=== PATIENT | female | born 1940 | race African-American/Black ===

== ENCOUNTER 2016-12-07 13:08 | Observation (INO) ==
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
--- NOTE | 2016-12-07 14:04 | Diag Imaging Result Doc PS360 ---
EXAM: CHEST-PORTABLE HISTORY: hx copd TECHNIQUE: Portable AP COMPARISON: 06/14/2015 FINDINGS: The lungs are well expanded. The heart is not enlarged. The vessels are not distended. No pneumonia. No pleural effusions identified. There are long-standing arthritic changes to each shoulder. IMPRESSION: Stable chest Electronically signed by Azam Christiansen 12/07/2016 2:01 PM
[2016-12-07 14:09] LABS: BASO% 0.3 % (0.0-0.8); EOS# 0.16 X1000 (0.0-0.7); EOS% 2.6 % (0.0-10.0); HEMATOCRIT 27.4 % (37.0-47.0); HEMOGLOBIN 8.5 g/dL (12.0-16.0); IMM GRAN# 0.02 X1000 (0.0-0.04); IMM GRAN% 0.3 % (0.0-0.5); LYMPH# 1.59 X1000 (1.2-3.4); LYMPH% 26.3 % (20.5-51.1); MANUAL DIFF NEEDED? YES; MCH 22.7 PG (27-31); MCV 73.1 FL (81-99); MONO# 0.85 X1000 (0.11-0.59); MONO% 14.1 % (1.7-9.3); MPV 10.4 FL (7.4-10.4); NEUT% 56.4 % (42.2-75.2); PLT 180 X1000 (130-400); RBC 3.75 XMIL (4.2-5.4)
[2016-12-07 14:27] LABS: EOS 6 % (1-10); LYMPHS 31 % (21-51); MONO 4 % (1-9)
[2016-12-07 14:29] LABS: AGAP 11; ALBUMIN 3.5 g/dL (3.5-5.0); ALKALINE PHOSPHATASE 75 U/L (32-104); BUN 23 mg/dL (8-22); CALCIUM 9.4 mg/dL (8.8-10.2); CHLORIDE 103 mmol/L (98-107); COSMO 285; GOT 14 U/L (10-30); GPT 8 U/L (10-36); POTASSIUM 4.4 mmol/L (3.5-5.1); SODIUM 141 mmol/L (136-145); TCO2 28 mmol/L (25-35); TOTAL PROTEIN 7.3 g/dL (6.3-8.3)
[2016-12-07] MEDS: ZOSYN 2.25 GM in NS 50 ML IV SCH ×2 (15:00→21:16)
[2016-12-07 15:26] LABS: BILIRUBIN URINE NEGATIVE (NEGATIVE); BLOOD URINE TRACE (NEGATIVE); CLARITY SL. CLOUDY (CLEAR); COLOR YELLOW; GLUCOSE URINE NEGATIVE (NEGATIVE); LEUKOCYTES URINE 2+ (NEGATIVE); NITRITE URINE NEGATIVE (NEGATIVE); PROTEIN URINE NEGATIVE (NEGATIVE); UROBILINOGEN URINE NORMAL
[2016-12-07 15:27] LABS: URINE CULTURE PL NEEDED? YES; URINE EPITHELIAL CELLS <10 /HPF (<10); URINE RBC <10 /HPF (<10); URINE SOURCE CLEAN CATCH; URINE WBC 20-40 /HPF (<10)
[2016-12-07] MEDS ORDERED: ZOFRAN IV PRN (16:44)
[2016-12-07 17:36] LABS: HEMOGLOBIN A1C 5.5 % (4.8-6.0)
[2016-12-07] MEDS: LOVENOX SUBQ SCH (18:01)
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
[2016-12-07] MEDS ORDERED: NS 100 ML ONE (21:13)
[2016-12-07] MEDS ORDERED: NS 50 ML IV SCH (21:15)
[2016-12-07] MEDS: NEURONTIN PO SCH (21:16)
[2016-12-08] MEDS: ZOSYN 2.25 GM in NS 50 ML IV SCH ×4 (02:59→21:16)
--- NOTE | 2016-12-08 03:52 | HISTORY AND PHYSICAL ---
ADDENDUM: Patient seen and examined by myself. Full note dictated and discussed with nurse practitioner. The patient notes that she is feeling fine. She actually ate supper without any difficulty. Denies any chest pain, palpitations. Does note that she has low back pain and sometimes difficulty urinating. PHYSICAL: General: Patient is awake, alert. She is in no distress. Extremities: She does have multiple wounds on the left hip that appear to be in various stages of healing. PLAN: We will admit patient to the hospital. Certainly concerned that she may have a urinary infection given her symptoms. We will treat her for such. We will ask Wound Therapy to assist with decreasing her current wound on her left hip as this has not been cared for properly at home. We will continue treatment for her blood sugar and her blood pressure. cc: Lucien Mcduffie MD
[2016-12-08 06:45] LABS: BASO% 0.2 % (0.0-0.8); EOS# 0.22 X1000 (0.0-0.7); HEMATOCRIT 26.2 % (37.0-47.0); HEMOGLOBIN 7.9 g/dL (12.0-16.0); IMM GRAN# 0.02 X1000 (0.0-0.04); IMM GRAN% 0.4 % (0.0-0.5); LYMPH# 2.07 X1000 (1.2-3.4); LYMPH% 37.9 % (20.5-51.1); MANUAL DIFF NEEDED? YES; MCH 22.2 PG (27-31); MCHC 30.2 g/dL (33-37); MCV 73.6 FL (81-99); MONO# 0.68 X1000 (0.11-0.59); MONO% 12.5 % (1.7-9.3); MPV 11.1 FL (7.4-10.4); PLT 180 X1000 (130-400); RBC 3.56 XMIL (4.2-5.4)
[2016-12-08 06:50] LABS: AGAP 9; BUN 23 mg/dL (8-22); CHLORIDE 104 mmol/L (98-107); COSMO 283; POTASSIUM 4.2 mmol/L (3.5-5.1); SODIUM 140 mmol/L (136-145); TCO2 27 mmol/L (25-35)
[2016-12-08 07:28] LABS: EOS 1 % (1-10); LYMPHS 33 % (21-51); MONO 3 % (1-9)
[2016-12-08] MEDS: POTASSIUM CHLORIDE 20% LIQUID PO SCH (08:56)
[2016-12-08] MEDS: COZAAR PO SCH (08:56)
[2016-12-08] MEDS: ASPIRIN EC PO SCH (08:57)
[2016-12-08 10:50] LABS: IRON SATURATION 17 %; TIBC 205 ug/dL; TOTAL IRON 34 ug/dL (49-151); UNBOUND IRON 171 ug/dL (112-346)
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
[2016-12-08] MEDS: LOVENOX SUBQ SCH (17:23)
[2016-12-08] MEDS: NEURONTIN PO SCH (21:16)
[2016-12-09] MEDS: ZOSYN 2.25 GM in NS 50 ML IV SCH ×3 (03:21→10:17)
[2016-12-09 06:38] LABS: AGAP 10; BUN 24 mg/dL (8-22); CALCIUM 8.8 mg/dL (8.8-10.2); CHLORIDE 106 mmol/L (98-107); COSMO 287; POTASSIUM 3.9 mmol/L (3.5-5.1); SODIUM 141 mmol/L (136-145); TCO2 25 mmol/L (25-35)
[2016-12-09 06:48] LABS: HEMATOCRIT 25.7 % (37.0-47.0); HEMOGLOBIN 7.8 g/dL (12.0-16.0); MCH 22.5 PG (27-31); MCHC 30.4 g/dL (33-37); MCV 74.3 FL (81-99); MPV 11.1 FL (7.4-10.4); RBC 3.46 XMIL (4.2-5.4)
[2016-12-09] MEDS: ASPIRIN EC PO SCH (09:18)
[2016-12-09] MEDS: POTASSIUM CHLORIDE 20% LIQUID PO SCH (09:18)
[2016-12-09] MEDS: COZAAR PO SCH (09:18)
[2016-12-09] MEDS ORDERED: AUGMENTIN PO SCH (10:30)
[2016-12-09] MEDS ORDERED: FERRLECIT 125 MG in NS 100 ML IV ONE (16:00)
--- NOTE | 2016-12-09 16:11 | PROGRESS NOTE ---
DATE: 12/09/2016 SUBJECTIVE: The patient has no focal complaints. She looks well, sitting up in the chair. OBJECTIVE: Vital Signs: Blood pressure 112/54, heart rate 62, respiratory rate 14, temperature 98.7 degrees. Cardiovascular: Regular rate and rhythm. Pulmonary: Bilateral breath sounds. Clear to auscultation. GI: Soft, nontender, nondistended. Bowel sounds are positive. Extremities: No clubbing or cyanosis. Lymphatics: No peripheral edema. Neurological exam: Nonfocal. LABORATORY DATA: White count 5, hemoglobin and hematocrit 7 and 25, platelets 166. Basic was normal. PROBLEM LIST: 1. Urinary tract infection. Her urine culture shows Escherichia coli that is sensitive to everything except Levaquin. She is currently on amoxicillin which we could probably change her to just plain old amoxicillin and will see how she does. 2. Anemia. She is still fairly anemic. It looks like she has some iron deficiency. I am going to continue iron treatment, and we will follow. DISPOSITION: Will continue iron, consider transfusion if she is not much improved. Hemoccult is pending. Disposition pending her clinical status, but she is a DHR case and we are planning for rehabilitation. Family is aware. cc: Fahad Barber MD
[2016-12-09] MEDS: LOVENOX SUBQ SCH (16:50)
[2016-12-09] MEDS: AMOXIL PO SCH (20:34)
[2016-12-09] MEDS: ICAR-C PO SCH (20:34)
[2016-12-09] MEDS: NEURONTIN PO SCH (20:34)
[2016-12-09] MEDS ORDERED: SENOKOT PO ONE (22:46)
[2016-12-09] MEDS: MIRALAX PO SCH (23:03)
[2016-12-10] MEDS: AMOXIL PO SCH ×3 (04:54→20:54)
[2016-12-10 06:21] LABS: HEMATOCRIT 25.7 % (37.0-47.0); HEMOGLOBIN 7.7 g/dL (12.0-16.0); MCH 22.4 PG (27-31); MCV 74.7 FL (81-99); MPV 10.7 FL (7.4-10.4); RBC 3.44 XMIL (4.2-5.4)
[2016-12-10 06:25] LABS: AGAP 10; BUN 28 mg/dL (8-22); CALCIUM 8.5 mg/dL (8.8-10.2); CHLORIDE 107 mmol/L (98-107); COSMO 286; POTASSIUM 4.2 mmol/L (3.5-5.1); SODIUM 141 mmol/L (136-145); TCO2 24 mmol/L (25-35)
[2016-12-10] MEDS: MIRALAX PO SCH (09:56)
[2016-12-10] MEDS: POTASSIUM CHLORIDE 20% LIQUID PO SCH (09:56)
[2016-12-10] MEDS: ICAR-C PO SCH ×2 (09:56→20:54)
[2016-12-10] MEDS: SENOKOT PO SCH (09:56)
[2016-12-10] MEDS: ASPIRIN EC PO SCH (09:57)
[2016-12-10] MEDS: COZAAR PO SCH (09:57)
--- NOTE | 2016-12-10 18:17 | PROGRESS NOTE ---
DATE: 12/10/2016 SUBJECTIVE: Patient has no focal complaints. OBJECTIVE: Vital signs: Blood pressure 116/51, heart rate of 66, respiratory rate 18, temperature 97.6 degrees. Cardiovascular: Regular rate and rhythm. Pulmonary: Bilateral breath sounds. Clear to auscultation. GI: Soft, nontender, nondistended. Bowel sounds are positive. Extremities: No clubbing or cyanosis. Lymphatics: No peripheral edema. Neurological: Nonfocal. LABORATORY DATA: Hemoglobin and hematocrit is 7 and 25, platelets of 178,000, white count 4.9. BUN and creatinine 28 and 0.9. PROBLEM LIST: 1. Urinary tract infection and E. coli. She is on amoxicillin. Seems to be doing okay. 2. Anemia is stable. There is no gross bleeding, but I am still waiting on occult stool. She is getting some iron supplementation. DISPOSITION: 1. Plan is to pursue rehab, possibly long-term care. 2. Hypertension appears to be stable. cc: Fahad Barber MD
[2016-12-10] MEDS: LOVENOX SUBQ SCH (18:51)
[2016-12-10] MEDS: NEURONTIN PO SCH (20:54)
[2016-12-10 22:06] LABS: OCCULT BLOOD 1 NEGATIVE (NEGATIVE)
[2016-12-11] MEDS: AMOXIL PO SCH ×3 (04:56→20:44)
[2016-12-11 05:39] LABS: AGAP 9; BUN 30 mg/dL (8-22); CALCIUM 8.7 mg/dL (8.8-10.2); CHLORIDE 108 mmol/L (98-107); COSMO 287; POTASSIUM 4.4 mmol/L (3.5-5.1); SODIUM 141 mmol/L (136-145); TCO2 25 mmol/L (25-35)
[2016-12-11 05:41] LABS: HEMATOCRIT 25.5 % (37.0-47.0); HEMOGLOBIN 7.7 g/dL (12.0-16.0); MCH 22.5 PG (27-31); MCHC 30.2 g/dL (33-37); MCV 74.6 FL (81-99); MPV 11.2 FL (7.4-10.4); RBC 3.42 XMIL (4.2-5.4)
[2016-12-11] MEDS: MIRALAX PO SCH (08:56)
[2016-12-11] MEDS: SENOKOT PO SCH (08:56)
[2016-12-11] MEDS: ICAR-C PO SCH ×2 (08:56→20:44)
[2016-12-11] MEDS: COZAAR PO SCH (08:57)
[2016-12-11] MEDS: ASPIRIN EC PO SCH (08:57)
[2016-12-11] MEDS: POTASSIUM CHLORIDE 20% LIQUID PO SCH (08:57)
--- NOTE | 2016-12-11 11:03 | PROGRESS NOTE ---
DATE: 12/11/2016 SUBJECTIVE: Patient is sitting up in bedside chair. No complaints voiced at this time. OBJECTIVE: Vital signs: Temp 98.6 degrees, pulse 70, respirations 18, blood pressure 119/54. General: This is a 76-year-old female, who is sitting up in the bedside chair. Answers questions appropriately. HEENT: Normocephalic and atraumatic. Pupils are equal, round, reactive to light. Extraocular movements are intact. Oropharynx and nares are clear. Neck: Supple. Lungs: Clear to auscultation bilaterally with equal lung expansion and chest wall movement. Heart: With regular rate and rhythm. No murmurs, rubs, or gallops. Abdomen: Soft, nontender, and nondistended. Bowel sounds are present x4 quadrants. Extremities: There is no clubbing, cyanosis, or edema. Neurological: The cranial nerves 2-12 appear grossly intact. LABORATORY DATA: Showed a white blood cell count of 4.33 and hemoglobin of 7.7, hematocrit 25.5, platelets 198,000. Sodium of 141, potassium 4.4, chloride 108, CO2 25, BUN of 30, creatinine 0.9, glucose of 90. Stool for occult blood was negative. ASSESSMENT AND PLAN: 1. Escherichia coli urinary tract infection. Continues on antibiotics. 2. Anemia. Stool was negative for occult blood. Her hemoglobin and hematocrit is actually remaining stable today. 3. Hypertension. We will continue her current medication regimen. 4. Left hip wound that appeared to be in the superficial denudation of the epidermis related to vesicular lesions. Wound care continues to follow treatment ongoing. 5. Disposition. Hopefully to rehab when bed is available. Dictated by ALBERT Boles for Fahad Barber MD cc: ALBERT Boles MD
[2016-12-11] MEDS: LOVENOX SUBQ SCH (17:39)
[2016-12-11] MEDS: NEURONTIN PO SCH (20:44)
[2016-12-12] MEDS: TYLENOL PO PRN (05:42)
[2016-12-12] MEDS: AMOXIL PO SCH ×3 (05:42→21:26)
--- NOTE | 2016-12-12 06:00 | DISCHARGE SUMMARY ---
ADMISSION DATE: 12/07/2016 DISCHARGE DATE: 12/11/2016 PRIMARY CARE PHYSICIAN: Dr. Rebolledo. ADMISSION DIAGNOSES: 1. Urinary tract infection. 2. Left hip wound that appeared to be a stage II. 3. Diabetes type 2. 4. History of hypertension. DISCHARGE DIAGNOSES: 1. E. coli urinary tract infection. 2. Anemia. 3. Hypertension. 4. Left hip wound that appears to be superficial denudation of the epidermis related to vesicular lesions. SUMMARY OF FINDINGS: This is a 76-year-old female who presented to the ER with complaints of low back pain and difficulty "making water". She had apparently been being cared for at home by her daughter. We received a call from [facility] who stated that the patient had not been well cared for by the daughter at home and they had applied for placement in a long-term care facility. The daughter had stopped that process when she determined that her social security check would go to the [facility] and not to the daughter. The [facility] worker felt that she was unsafe for her to return home, and requested she be admitted for rehab placement. It was noted that she had a wound to the left outer leg that was red and raw. It was circular with a 3 x 2.5 cm size not draining. Her heels were soft and boggy. She was noted to have a small blister to her left cruz. Her urine showed negative nitrites, but 2+ white blood cells, and 3+ bacteria. Urine culture showed E. coli. She has been being treated appropriately and she has remained afebrile for greater than 24 hours. Her white blood cell count is within normal limits and so it is felt now that she can safely to rehab. The patient was noted to have a low hemoglobin and hematocrit of around 7.7 and 25.5, but this remained stable. We did check a stool for occult blood and it was negative so it is felt that she is stable at this time. We will continue her current regimen and ready for discharge. DISCHARGE MEDICATIONS: 1. She will stay on amoxicillin 500 mg 1 p.o. q.8 hours for 7 days. 2. Icar C1 p.o. b.i.d. 3. Klor-Con 20 mEq p.o. daily. 4. Aspirin 81 mg p.o. daily. 5. Gabapentin 400 mg p.o. at bedtime. 6. Losartan 100 mg p.o. daily. FOLLOWUP: She will follow up with her facility physician during her rehab stay and with her primary care physician once she is discharged. All discharge instructions have been reviewed with the patient and she verbalized understanding. TIME SPENT: 35 minutes. Dictated by ALBERT Boles for Fahad Barber MD cc: ALBERT Boles MD Dr. Thomas
--- NOTE | 2016-12-12 07:08 | DISCHARGE SUMMARY ---
ADMISSION DATE: 12/07/2016 DISCHARGE DATE: ADDENDUM: We attempted to discharge her today but due to social issues that will not happen. Patient's abdominal exam is benign. Clear to auscultation bilaterally. PROBLEM LIST: 1. E. coli urinary tract infection. She is on amoxicillin. 2. Acute kidney injury. She seems to be doing well. PLAN: The plan was to discharge to rehab. She is a [facility] case. Per their recommendation, she needs long-term placement. She cannot go back home in the care of her daughter. However, her daughter will not sign her in to a [facility] or to [facility] because she refuses to. In any case, the patient is stable to go. We are working on disposition. Hopefully, we can get this resolved but she may end up having to be a [place] of the state. cc: Fahad Barber MD
[2016-12-12] MEDS: COZAAR PO SCH (08:15)
[2016-12-12] MEDS: ICAR-C PO SCH ×2 (08:15→21:26)
[2016-12-12] MEDS: ASPIRIN EC PO SCH (08:15)
[2016-12-12] MEDS: POTASSIUM CHLORIDE 20% LIQUID PO SCH (08:16)
[2016-12-12] MEDS: MIRALAX PO SCH (09:56)
[2016-12-12] MEDS: SENOKOT PO SCH (09:57)
--- NOTE | 2016-12-12 13:05 | PROGRESS NOTE ---
DATE: 12/12/2016 SUBJECTIVE: Patient sitting on side of the bed. No complaints voiced. OBJECTIVE: Vital Signs: Temp 98.5 degrees, pulse 72, respirations 18, blood pressure 128/69, satting 99% on room air. General: This is a 76-year-old, female who is sitting on the side of the bed. Answers questions appropriately. HEENT: Normocephalic and atraumatic. Pupils are equal, round, reactive to light. Extraocular movements are intact. The oropharynx and nares are clear. Neck: Supple. Lungs: Clear to auscultation bilaterally with equal lung expansion and chest wall movement. Heart: Regular rate and rhythm. No murmurs, rubs, or gallops. Abdomen: Soft, nontender, nondistended. Bowel sounds are present x4 quadrants. Extremities: No clubbing, cyanosis, or edema. Patient is noted to have a fluid-filled blister to her right outer upper thigh closest to her hip. Has a dry dressing in place for protection. She also has a treatment ongoing to her left hip where a fluid-filled blister had burst. Neurological: Cranial nerves 2-12 are grossly intact. LABORATORY DATA: No new labs today. ASSESSMENT: 1. Escherichia coli urinary tract infection. Will continue her on antibiotics. 2. Anemia is stable. 3. Hypertension. We will continue her current medication regimen. 4. Left hip wound that appeared to be in the superficial denudation of the epidermis related to vesicular lesions. Wound therapy continues to follow for ongoing treatment. DISPOSITION: This patient was scheduled to be discharged to rehab yesterday as she had an order of protection from [facility] signed by the court system. We found her a place at [facility] The daughter refused to sign her in Wednesday, stating that she would do it Wednesday, but the social work note states that [facility] is working on guardianship if the daughter does not sign her mother into the senior care on Wednesday. This morning the daughter is at bedside, apparently spent the night last night with the patient. From what I am gathering, they had been evicted and she no longer has a place to live. She said I "might sign her in Wednesday, we will see." I explained to her that regardless if she signs her mother in or not, the guardianship is being pursued. She stated she verbalized understanding, that she had been told that by our Social Work Department yesterday. So, whenever all of this is settled, the patient will go to the senior care. Dictated by ALBERT Boles for Fahad Barber MD cc: ALBERT Boles MD
--- NOTE | 2016-12-12 14:34 | PROGRESS NOTE ---
DATE: 12/12/2016 ADDENDUM REPORT The patient was examined. [id number] encounter. Abdominal exam benign. Clear to auscultation bilaterally. PLAN: Continue treatment for E. coli urinary tract infection on antibiotics. We are planning for a discharge on Wednesday hopefully to the rehab, but her daughter refused to sign for her, so there may be some guardianship issues, but hopefully things will work out Wednesday. cc: Fahad Barber MD
[2016-12-12] MEDS: LOVENOX SUBQ SCH (16:15)
[2016-12-12] MEDS: NEURONTIN PO SCH (21:26)
[2016-12-13] MEDS: AMOXIL PO SCH ×4 (05:53→21:52)
[2016-12-13 06:16] LABS: HEMATOCRIT 25.5 % (37.0-47.0); HEMOGLOBIN 7.7 g/dL (12.0-16.0); MCH 22.4 PG (27-31); MCHC 30.2 g/dL (33-37); MCV 74.3 FL (81-99); MPV 11.1 FL (7.4-10.4); RBC 3.43 XMIL (4.2-5.4)
--- NOTE | 2016-12-13 09:13 | PROGRESS NOTE ---
DATE: 12/13/2016 SUBJECTIVE: Patient resting quietly. No complaints voiced. OBJECTIVE: Vital Signs: Temperature 97.5 degrees, pulse 61, respirations 18, blood pressure 107/54, saturating 100% on room air. General: This is a 76-year-old, female who is lying in the bed, resting quietly, but answers questions appropriately. HEENT: Normocephalic and atraumatic. Pupils are equal, round, and reactive to light. The extraocular movements are intact. The oropharynx and nares are clear. Neck: Supple. Lungs: Clear to auscultation bilaterally with equal lung expansion and chest wall movement. Heart: With regular rate and rhythm. No murmurs, rubs, or gallops. Abdomen: Soft, nontender, nondistended. Bowel sounds are present x4 quadrants. Extremities: No clubbing, cyanosis, or edema. Patient continues to have the fluid-filled blister to her right outer upper thigh closest to her hip and has a dry dressing in place for protection. She also has the treatment ongoing to her left hip where there was a fluid-filled blister that burst. Neurological: The cranial nerves 2-12 are grossly intact. Laboratory Data: Showed a white blood cell count of 4.95, hemoglobin 7.7, hematocrit 25.5, platelets 210,000. No other new labs. ASSESSMENT AND PLAN: 1. E. coli urinary tract infection. We will continue her antibiotics. 2. Anemia, which is stable. 3. Hypertension. We continued her current medication regimen. 4. Left hip wound that appeared to be in the superficial denudation of the epidermis, related to a vesicular lesion. Wound therapy continues to follow with ongoing treatment. 5. Disposition. Hopefully, patient will be able to be discharged to rehab tomorrow as the daughter is to sign her in but there are some guardian issues with the current case with [facility] so hopefully she will be able to go to rehab tomorrow. Dictated by ALBERT Boles for Fahad Barber MD cc: ALBERT Boles MD pt examined, seen face to face , pt has clear pulmonary exam, soft nt/nd bs:+, ecoli uti is being treated, plan for rehab in am, if daughter will sign for pt APENOT MTDD
[2016-12-13] MEDS: MIRALAX PO SCH (09:30)
[2016-12-13] MEDS: SENOKOT PO SCH (09:31)
[2016-12-13] MEDS: ICAR-C PO SCH ×3 (09:31→21:52)
[2016-12-13] MEDS: POTASSIUM CHLORIDE 20% LIQUID PO SCH (09:31)
[2016-12-13] MEDS: ASPIRIN EC PO SCH (09:31)
[2016-12-13] MEDS: COZAAR PO SCH (09:31)
[2016-12-13] MEDS: LOVENOX SUBQ SCH (17:26)
[2016-12-13] MEDS: NEURONTIN PO SCH ×2 (19:24→21:52)
[2016-12-13] MEDS: TYLENOL PO PRN (21:41)
[2016-12-14] MEDS: AMOXIL PO SCH ×2 (04:03→13:41)
[2016-12-14] MEDS: MIRALAX PO SCH (08:54)
[2016-12-14] MEDS: POTASSIUM CHLORIDE 20% LIQUID PO SCH (08:55)
[2016-12-14] MEDS: ASPIRIN EC PO SCH (08:55)
[2016-12-14] MEDS: COZAAR PO SCH (08:55)
[2016-12-14] MEDS: ICAR-C PO SCH (08:55)
[2016-12-14] MEDS: SENOKOT PO SCH (08:55)
--- NOTE | 2016-12-14 11:10 | PROGRESS NOTE ---
DATE: 12/14/2016 SUBJECTIVE: Ms. Quijano is sitting up in the bed. She is awake and alert. She denies any chest pain, shortness of breath, or palpitations. OBJECTIVE: Vital Signs: Blood pressure is 113/56 with a heart rate of 66, respirations are 18, temperature is 98 oral with room air saturations of 99% to 100%. General: This is a 76-year-old female, who is sitting up in the bed, resting quietly in no distress. Cardiovascular: Regular rate and rhythm. S1 and S2 appreciated. No rubs, murmurs, or gallops. Pulmonary: Breath sounds are clear with no increased work of breathing noted. Chest does rise and fall symmetrically with respiration. Gastrointestinal: Abdomen was soft, nontender, nondistended with bowel sounds in all 4 quadrants. Extremities: No clubbing, cyanosis, or edema. Calves are nontender. Pulses are palpable x4. She does have a fluid-filled blister to her right upper-outer thigh. ASSESSMENT AND PLAN: 1. Escherichia coli urinary tract infection. This is extended spectrum beta-lactamase negative. We will continue her Amoxil. 2. Anemia. This is stable. 3. Hypertension. Blood pressures are in the 116-137/40s-70s range. We will continue with her current medication regimen. 4. Left hip wound. Continue to be followed with wound therapy. 5. Disposition. The patient had a bed at [facility]. She did agree to go. Although, according to the social work lecturer's notes, the daughter refused to sign the patient in. Therefore, a court order was obtained, and we are currently awaiting on a guardian to be appointed to sign the patient in. Dictated by ALBERT Mcnamara for Lucien Mcduffie MD cc: ALBERT Mcnamara MD
--- NOTE | 2016-12-14 13:04 | DISCHARGE SUMMARY ---
ADMISSION DATE: 12/07/2016 DISCHARGE DATE: 12/14/2016 DIAGNOSES: 1. Escherichia coli urinary tract infection, extended-spectrum beta-lactamase negative. 2. Anemia, stable. 3. Hypertension. 4. Left hip wound. 5. Acute kidney injury, resolved. 6. Diabetes type 2. CONSULTS: Wound care. HOSPITAL COURSE: Ms. Quijano presented to the ER complaining of low back pain and difficulty "making water." Prior to hospitalization she was being cared for at home by her daughter. The hospital did receive a call from [facility] that stated that the patient had not been well cared for by the daughter and they had applied for placement in a long-term care facility. The daughter stopped the process when she determined that her social security check would go to the longterm not to the daughter. The [facility] worker felt that she was unsafe to return home and requested that she be admitted for rehab placement. It was noted that she had a wound to her left outer leg that was red and raw. She did have boggy heel. She was found to have an E. coli UTI for which she has been treated with amoxicillin which she is tolerating well. Blood sugars have ranged in the 77 to it looks like 130 range. The patient did have a low hemoglobin and hematocrit of 7.7 and 25.5, which was stable throughout the hospitalization. Stool for occult blood was negative. Therefore, it is felt that she is stable to be discharged at this time. DIAGNOSTICS: On 12/07/2016 chest x-ray revealed lungs are well expanded. Heart is not enlarged. Vessels are not distended. No pneumonia. No pleural effusions identified. Stable chest. MICROBIOLOGY: E. coli UTI. DISCHARGE MEDICATIONS: 1. Amoxicillin 500 mg 1 q.8 hours for 7 days. 2. Icar C 1 p.o. b.i.d. 3. Klor-Con 20 mEq p.o. daily. 4. Aspirin 81 mg daily. 5. Gabapentin 400 mg p.o. at bedtime. 6. Losartan 100 mg p.o. daily. 7. MiraLAX 17 g p.o. daily. 8. Senokot 1 p.o. daily. FOLLOWUP: She needs to follow up with her primary care physician once discharged. While in the rehab facility she will be cared for by the facility physician. She is being discharged to rehab in stable condition. TIME SPENT: This is a greater than 30 minute discharge. Dictated by ALBERT Mcnamara for Lucien Mcduffie MD cc: ALBERT Mcnamara MD
[2016-12-14 14:43] VITALS: BP 117/58
[2016-12-14] MEDS ORDERED: FLUZONE QUAD 2017-2018 SYRINGE IM ONE (14:55)
--- NOTE | 2016-12-14 19:53 | PROGRESS NOTE ---
DATE: 12/14/2016 ADDENDUM: The patient was seen and examined by myself. Full note dictated by nurse practitioner. The patient was admitted to the hospital on 12/07, treated in usual fashion for her E. coli urinary tract infection and placed on antibiotics. Thankfully, she continued to improve, although she continued to have some physical limitations which prevented her from going home. She was therefore transitioned to rehab. cc: Lucien Mcduffie MD
== END 2016-12-14 16:00 ==
LOC: P.ED 13:08 → P.MEDSURG 15:49 → SUATTDRO 15:49 → INTOOBSV 15:49
PROVIDERS: ATTEND Family Medicine

== ENCOUNTER 2018-06-17 12:28 | Inpatient (IN) ==
[2018-06-17] MEDS ORDERED: NS 2,000 ML ONE (12:46)
[2018-06-17] MEDS ORDERED: D50W SYRINGE IV ONE ×2 (12:49→17:00)
[2018-06-17] MEDS ORDERED: HUMULIN R IV ONE ×2 (12:49→17:00)
[2018-06-17] MEDS ORDERED: CALCIUM CHLORIDE SYRINGE IV ONE (12:49)
[2018-06-17] MEDS ORDERED: NS 1,000 ML IV ONE (12:49)
[2018-06-17] MEDS ORDERED: SODIUM BICARBONATE 8.4% IV ONE ×2 (12:49→16:44)
[2018-06-17] MEDS ORDERED: ALBUTEROL 0.5% INH CONC FOR HYPERKALEMIA INH ONE ×3 (12:52→17:00)
--- NOTE | 2018-06-17 13:24 | Diag Imaging Result Doc PS360 ---
EXAM: CHEST-1 VIEW 06/17/2018 HISTORY: new a fib TECHNIQUE: AP portable at 1316 COMMENT: The appearance the chest has not changed significantly since 12/07/2016. IMPRESSION: No acute disease. Electronically signed by David Everett 06/17/2018 1:21 PM
--- NOTE | 2018-06-17 13:28 | EKG Report ---
Test Performed on : 06/17/2018 12:37:21 PM Test Reason : tachy Blood Pressure : / mmHG Vent. Rate : 146 BPM Atrial Rate : 144 BPM P-R Int : 000 ms QRS Dur : 086 ms QT Int : 236 ms P-R-T Axes : 000 032 069 degrees QTc Int : 367 ms Atrial fibrillation. with rapid ventricular response. Low voltage QRS ST elevation, consider inferolateral injury or acute infarct ACUTE WA / STEMI Abnormal ECG When compared with ECG of 11-APR-2012 14:14, Significant changes have occurred Unconfirmed Result
[2018-06-17 13:34] LABS: BASO# 0.04 X1000 (0.0-0.2); BASO% 0.4 % (0.0-0.8); EOS% 1.9 % (0.0-10.0); HEMATOCRIT 30.7 % (37.0-47.0); HEMOGLOBIN 9.7 g/dL (12.0-16.0); IMM GRAN# 0.48 X1000 (0.0-0.04); IMM GRAN% 4.5 % (0.0-0.5); LYMPH# 2.25 X1000 (1.2-3.4); MCH 22.9 PG (27-31); MCHC 31.6 g/dL (33-37); MCV 72.4 FL (81-99); MONO# 1.38 X1000 (0.11-0.59); MONO% 12.9 % (1.7-9.3); MPV 12.5 FL (7.4-10.4); NEUT# 6.36 X1000 (1.4-6.5); NEUT% 59.3 % (42.2-75.2); PLT 327 X1000 (130-400); RBC 4.24 XMIL (4.2-5.4); RDW 17.9 % (11.5-14.5); WBC 10.71 X1000 (4.8-10.8)
[2018-06-17 13:39] LABS: ALB/GLOB RATIO 0.9; ALBUMIN 3.1 g/dL (3.5-5.0); CALCIUM 9.3 mg/dL (8.8-10.2); CREATININE 4.2 mg/dL (0.5-0.9); POTASSIUM 6.9 mmol/L (3.5-5.1); TOTAL BILIRUBIN 0.18 mg/dL (0.20-1.00); TOTAL PROTEIN 6.6 g/dL (6.3-8.3)
[2018-06-17] MEDS ORDERED: LOVENOX 1 MG/KG SUBQ ONE (13:42)
[2018-06-17] MEDS ORDERED: LOVENOX SUBQ ONE (13:45)
[2018-06-17] MEDS ORDERED: CORDARONE IV ONE (13:52)
[2018-06-17 13:53] LABS: CK INDEX 1.3 (0.0-2.5); CK-MB 8.85 ng/mL (0.0-5.0)
[2018-06-17] MEDS ORDERED: LANOXIN IV ONE (13:53)
--- NOTE | 2018-06-17 13:53 | EKG Report ---
Test Performed on : 06/17/2018 1:51:24 PM Test Reason : CP Blood Pressure : / mmHG Vent. Rate : 189 BPM Atrial Rate : 138 BPM P-R Int : 000 ms QRS Dur : 084 ms QT Int : 252 ms P-R-T Axes : 000 022 059 degrees QTc Int : 446 ms Atrial fibrillation. with rapid ventricular response. Low voltage QRS Nonspecific T wave abnormality Abnormal ECG When compared with ECG of 17-JUN-2018 12:37, (Unconfirmed) Nonspecific T wave abnormality now evident in Inferior leads Unconfirmed Result
[2018-06-17 14:00] LABS: BANDS 3 % (0-1); EOS 5 % (1-10); LYMPHS 22 % (21-51); MICROCYTOSIS 1+; MONO 12 % (1-9); SEGS 54 % (42-75)
[2018-06-17] MEDS ORDERED: SODIUM BICARBONATE 8.4% 150 MEQ in D5W 1,000 ML IV ONE (14:54)
[2018-06-17 15:19] LABS: ALLEN TEST YES; BE -15.6 mmoll (-3.0-3.0); BLOOD TYPE ARTERIAL; HCO3-(ACT) 12.7 mmoll (20.0-26.0); METHB 1.6 % (0.0-1.5); PCO2(98.6) 26 mmHg (35-45); PO2(98.6) 94 mmHg (60-100); SAMPLE BLOOD; SAO2 97.8 % (95.0-100.0); THB 8.9 g/dL (11.5-17.4); pH(98.6) 7.22 (7.35-7.45)
[2018-06-17 15:20] LABS: MODALITY ROOM AIR
[2018-06-17] MEDS ORDERED: NS 1,000 ML ONE (15:31)
--- NOTE | 2018-06-17 16:31 | Diag Imaging Result Doc PS360 ---
EXAM: US RENAL 2 (RETROPER) COMPLETE 06/17/2018 HISTORY: essence/arf TECHNIQUE: Renal ultrasound COMMENT: The urinary bladder is not distended. The wall is somewhat thickened which may be due to nondistention but the possibility of cystitis cannot be excluded. The kidneys are without evidence of hydronephrosis. There is an apparent cyst in the lower pole of the left kidney measuring 3.6 cm in greatest dimension. This is not well demonstrated due to the patient's condition and bowel gas. Otherwise there are no apparent masses. There is no evidence of stones. There are no previous ultrasound examinations, however there is a previous CT without contrast dated 06/10/2018. This does not demonstrate a definite cyst or other mass in the lower pole of the left kidney however in the mid anterior cortex there is a contour abnormality measuring [address] density of over 46 Hounsfield units. That abnormality is not clearly identified on the ultrasound. Further evaluation with contrast may be desirable. IMPRESSION: No evidence of obstructive uropathy. The possibility of cystitis cannot be excluded. Electronically signed by David Everett 06/17/2018 4:29 PM
[2018-06-17] MEDS ORDERED: HUMULIN R IV STA (16:33)
[2018-06-17] MEDS ORDERED: D50W SYRINGE IV STA (16:33)
[2018-06-17] MEDS ORDERED: CALCIUM GLUCONATE 1 GM in NS 50 ML IV STA (16:34)
[2018-06-17] MEDS ORDERED: ALBUTEROL 0.5% INH CONC FOR HYPERKALEMIA INH STA (16:35)
[2018-06-17 16:53] LABS: URINE SOURCE CATH
--- NOTE | 2018-06-17 16:54 | CARDIOLOGY CONSULTATION ---
DATE: 06/17/2018 HISTORY OF PRESENT ILLNESS: Patient is a 76-year-old lady, brought in from a fdc, who has abnormal laboratories, abnormal renal function with ATN, and abnormal troponin with atrial fibrillation with rapid ventricular rate. The patient was given 2 L IV fluids. Patient is currently having a blood pressure of 90 systolic. For her atrial fibrillation, she was given digoxin and 150 mg of IV amiodarone. The patient was not fully forthcoming regarding history. She was disoriented. History was obtained from previous records as well. Patient does not complain of chest pain at the time of my examination. Patient came in from a long-term facility. PAST MEDICAL HISTORY: COPD, hypertension, diabetes, arthritis, hyperlipidemia, renal insufficiency. SOCIAL HISTORY: She is a former smoker. Quit about 17 years back. REVIEW OF SYSTEMS: Could not be obtained in completion from the patient. MEDICATIONS AT HOME: Included: 1. Potassium supplements 20. 2. Aspirin 81 mg a day. 3. Losartan 50. 4. Icar-C 5. Polyethylene glycol. 6. Megestrol. 7. Exelon. 8. Sertraline. 9. Simvastatin. 10. Senna. 11. Pain medications. PHYSICAL EXAMINATION: On examination, blood pressure was 99/60. Jugular venous pressure could not be assessed. First and second heart sounds were heard. There was faint systolic murmur. Respiratory System: Normal air entry. There was no fever. Abdomen was soft, nontender. There was no guarding or rigidity. Bowel sounds were heard. Central nervous system: Patient was disoriented, answering questions in monosyllables. Was moving extremities. Detailed central nervous system examination not performed. DIAGNOSTIC STUDIES: Laboratory examination revealed WBC 10.71, hemoglobin 9.7, hematocrit 30, platelet count of 327. Sodium 142, potassium 6.9, BUN 130, creatinine 4.2. Troponin abnormal at 0.321. Acetone was negative. Chest x-ray was unremarkable. ASSESSMENT: Ms. Gina Quijano is a 77-year-old lady who came to the emergency room. The ED reports she came in with abnormal labs and was noted to be in atrial fibrillation with rapid ventricular rate with acute tubular necrosis, renal failure, as well as hyperkalemia. From a cardiac standpoint, she was noted to be in atrial fibrillation with rapid ventricular rate. Given her hypotension, she was given 150 mg of IV amiodarone. PLAN: From a cardiac standpoint: 1. Abnormal troponin is secondary to ATN. Her hypotension probably related to dehydration and/or sepsis. We will get urine and blood cultures done. She has had UTI in the past. She received 2 L of IV fluids, has persistent low blood pressure. We will give her dopamine as well as continue with amiodarone by drip. 2. She has been on multiple medications, including losartan and potassium supplements, which will be held at the present time. 3. Given her ATN and hyperkalemia, we will check a BMP again and consult Nephrology 4. We will treat her hyperkalemia per standard protocol. Thank you for the consult. We will follow hospital course. cc: Gabriel Cardozo MD
[2018-06-17 17:01] LABS: BILIRUBIN URINE NEGATIVE (NEGATIVE); BLOOD URINE MODERATE (NEGATIVE); COLOR ORANGE; GLUCOSE URINE NEGATIVE (NEGATIVE); KETONE URINE NEGATIVE (NEGATIVE); LEUKOCYTES URINE LARGE (NEGATIVE); NITRITE URINE NEGATIVE (NEGATIVE); PH URINE 5.5; PROTEIN URINE 200 mg/dL (NEGATIVE); SP GRAVITY URINE 1.011; TURBIDITY URINE TURBID (CLEAR); UROBILINOGEN URINE NORMAL (NORMAL)
[2018-06-17 17:08] LABS: UR EPITHELIAL CELLS >10 /HPF (<10); URINE BACTERIA 3+ /HPF; URINE RBC TNTC /HPF (<10); URINE WBC TNTC /HPF (<10)
[2018-06-17] MEDS ORDERED: DOPAMINE 400 MG/D5W 400 MG/500 ML IV.SOLN IV SCH (17:20)
[2018-06-17 17:33] LABS: URINE CASTS NONE SEEN; URINE CRYSTALS NONE SEEN; URINE SMALL ROUND CELLS NONE SEEN; URINE YEAST NONE SEEN
[2018-06-17] MEDS ORDERED: DOPAMINE 800 MG/D5W 800 MG/500 ML IV.SOLN IV SCH (17:45)
[2018-06-17] MEDS ORDERED: CORDARONE 360 MG/D5W 360 MG/200 ML IV.SOLN IV ONE (17:45)
--- NOTE | 2018-06-17 18:17 | Diag Imaging Result Doc PS360 ---
EXAM: CHEST-PORTABLE - 06/17/2018 HISTORY: central line placement verification TECHNIQUE: Portable chest COMPARISON: Prior exam of 06/17/2018 FINDINGS: There has been interval insertion of a left internal jugular central venous catheter, with its tip at or near the caval atrial junction. There is no pneumothorax identified. There are no other acute changes identified. IMPRESSION: Tip of central venous catheter at or near caval atrial junction. No evidence of pneumothorax. Electronically signed by Michael Philippe 06/17/2018 6:15 PM
[2018-06-17] MEDS: ZOSYN 2.25 GM in NS 50 ML IV SCH (18:20)
[2018-06-17 18:26] LABS: CK INDEX 1.4 (0.0-2.5); CK-MB 8.08 ng/mL (0.0-5.0)
[2018-06-17 18:40] LABS: UR CREAT RANDOM 111.3 mg/dL (11-20); UR PROT RANDOM 176.6 mg/dL
[2018-06-17 18:42] LABS: ALBUMIN 2.5 g/dL (3.5-5.0); CALCIUM 9.3 mg/dL (8.8-10.2); CREATININE 3.6 mg/dL (0.5-0.9); PHOSPHORUS 4.2 mg/dL (2.7-4.5); POTASSIUM 5.3 mmol/L (3.5-5.1)
[2018-06-17] MEDS: ZYVOX 600 MG/D5W 600 MG/300 ML IVPB IV SCH (19:00)
[2018-06-17] MEDS ORDERED: NS 2,000 ML IV ONE (19:12)
[2018-06-17] MEDS ORDERED: NS 2,000 ML IV SCH (19:15)
[2018-06-17 19:31] LABS: CK INDEX 1.5 (0.0-2.5); CK-MB 9.51 ng/mL (0.0-5.0)
--- NOTE | 2018-06-17 19:56 | HISTORY AND PHYSICAL ---
CHIEF COMPLAINT: Abnormal labs. HISTORY OF PRESENT ILLNESS: This is a 77-year-old female with a history of COPD, hypertension, diabetes mellitus type 2, arthritis, and hyperlipidemia. She presented to the emergency room from an extended living facility for abnormal labs. The patient is unable to give any history or information. There are no family members present, so events leading up to her labs being drawn are unknown at this time with the exception of knowing that she had a potassium of 7.3. She was found to be in atrial fibrillation with RVR at a rate of 168, BP 75/48. The patient has very dehydrated by exam. Her mucous membranes are dry. Lips are cracking. She has poor skin turgor. Eyes are sunken. PAST MEDICAL HISTORY: Obtained from her previous history and physicals from 2017: COPD, hypertension, arthritis, recurrent UTIs and hyperlipidemia PAST SURGICAL HISTORY: Unknown at this time. SOCIAL HISTORY: She lives at an extended care facility. ALLERGIES: Documented as tramadol. HOME MEDICATIONS: We will attempt to find a list and verify. REVIEW OF SYSTEMS: Unable to obtain with the patient. PHYSICAL EXAMINATION: GENERAL: This is a cachectic 77-year-old female, who is lying on the stretcher in the emergency room, in no distress. VITAL SIGNS: Blood pressure is 102/45 with a heart rate of 114, respirations are 18, temperature is 96.6 degrees, with O2 saturations that are running 97% to 98%. HEENT: Head is normocephalic, atraumatic. Mucous membranes are dry. NECK: Supple with trachea midline. CARDIOVASCULAR: Irregularly irregular rate and rhythm. No murmur. Peripheral pulses are palpable x4 extremities. Turgor is poor. PULMONARY: Breath sounds are diminished throughout. Chest rises and falls symmetric with respiration. GASTROINTESTINAL: Abdomen is soft, nondistended. She does grimace to umbilical palpation. Bowel sounds are present in all 4 quadrants. SKIN: Warm, dry NEUROLOGIC: She will answer in yes or no words. At times, she does moan. She does intermittently follow commands. DIAGNOSTIC STUDIES: WBC 10, hemoglobin 9.7, hematocrit 30.7, platelets 327,000. Chemistry: Sodium 142, potassium 6.9, CO2 of 12, BUN 130, creatinine 4.2, glucose 93. CPK 693, troponin 0.321. Acetone is negative. Chest x-ray reveals no acute disease. EKG reveals atrial fibrillation with RVR. ASSESSMENT AND PLAN: 1. Severe hyperkalemia. The patient has received treatment twice in the ER for the elevated potassium. Will recheck the potassium level and and retreat if necessary. The case was discussed with . 2. Sepsis secondary to UTI. Blood and urine cultures have been obtained. Will continue with IV fluid hydration and start renal dosed broad spectrum antibiotics. 3. Acute kidney injury. Multifactorial. Likely secondary to sepsis and medications. Will order urine studies and a renal ultrasound. Will also place a moreno catheter and start D5W with 3 amps of sodium bicarbonate @100ml/hr. Nephrology has been consulted. 4. Atrial fibrillation with RVR. The patient has been seen by . The patient is currently on a dopamine drip and amiodarone. 5. Severe metabolic acidosis. The patient has been started on bicarbonate drip. 6. Anemia. Will check iron studies and monitor the H/H closely. 7. Urinary tract infection. Cultures have been obtained. Will start broad spectrum antibiotics. 8. Elevated troponin. Will trend the cardiac enzymes. Cardiology has been consulted. 9. DVT prophylaxis. Will start heparin. Further treatments pending hospital course. Dictated by ALBERT Mcnamara for Ewelina English MD This chart was documented by, ALBERT Mcnamara and accurately reflects the services performed, treatment plan and medical decisions as attested by the providers signature Ewelina English MD. cc: ALBERT Mcnamara MD I performed a face to face encounter on this patient. I reviewed all imaging and labs for the patient. I agree with the H&P as dictated. is a 77 year old female who was brought to the ER from [facility] with a chief complaint of confusion, dehydration and abnormal labs. Upon arrival the patient was noted to be septic with renal failure and a potassium of 6.9. She was also noted to be in atrial fibrillation with RVR. The patient received treatment for the hyperkalemia in the ER and she received 3 liters of IVF. and were consulted while the patient was in the ER. On exam, the patient was noted to be lethargic with poor skin turgor. She was tachcardic with a irregularly irregular rhythm. Her breath sounds were equal but diminished at the bases. The patient will be admitted to the medical ICU with the diagnosis and plan as listed above. MOMO
[2018-06-17 21:42] LABS: ALBUMIN 2.4 g/dL (3.5-5.0); CALCIUM 9.5 mg/dL (8.8-10.2); PHOSPHORUS 3.2 mg/dL (2.7-4.5); POTASSIUM 4.9 mmol/L (3.5-5.1)
--- NOTE | 2018-06-17 21:51 | NEPHROLOGY CONSULTATION ---
DATE: 06/17/2018 REASON FOR CONSULTATION: Hyperkalemia and acute kidney injury. HISTORY OF PRESENT ILLNESS: Ms. Quijano is a 77-year-old woman with diabetes, hypertension hyperlipidemia. She resides in a local correction facility. She was having declining health in the last several days and had decreasing intake and activity. The staff became concerned and collected labs and a urine and urine culture. Her status continued to worsen, and her labs were found to be markedly abnormal so she was transferred to the emergency room. Her initial vital signs on arrival found blood pressure 75/48 with heart rate 108. Blood pressure was as low as into the 60s, and she developed atrial fibrillation with rapid ventricular response with heart rate as fast as 135. She was treated with IV fluid resuscitation, empiric broad-spectrum antibiotics were initiated after cultures were obtained. Her initial laboratory data found potassium of 6.9, and she received treatment for this with IV calcium, inhaled albuterol, intravenous insulin, IV fluids, etc. Her labs were repeated at the time of my exam, and potassium was down to 5.3. At the time of my exam, she was finishing up with a central line placement by the ER physician. She is spontaneously awake and alert. She states that she felt just fine and denied any new complaints. No pain, no chills, fevers, sweats, night sweats, cough, sputum, nausea, vomiting, diarrhea, abdominal pain, etc. PAST MEDICAL HISTORY: As above. HOME MEDICATIONS: Include potassium chloride, losartan, aspirin, gabapentin, iron carbonyl, polyethylene glycol, megestrol, Exelon, sertraline, simvastatin, hydrocodone. ALLERGIES: Tramadol. SOCIAL HISTORY: As above. FAMILY HISTORY: Otherwise noncontributory. REVIEW OF SYSTEMS: Otherwise noncontributory. PHYSICAL EXAMINATION: Vital Signs: Blood pressure 128/64, heart rate 119, respirations 17, afebrile. General: She is a thin, frail, emaciated woman awake and alert in no distress. Skin: Warm and dry. HEENT: Conjunctivae are pale. Pupils are equal. Dense corneal arcus is present. Oropharynx has poor dentition. Moist mucous membranes. Neck: Supple. Trachea is midline. Neck vein distention is not visible. Heart: PMI is nondisplaced. Irregular rhythm and tachycardia. No gallops. Respiratory: Lungs have equal breath sounds. No crackles or wheezes. Abdomen: Soft, nontender. Bowel sounds present but diminished. No organomegaly or masses. Extremities: Have no edema, clubbing, or cyanosis. Neurologic Exam: Grossly nonfocal. She is verbal as above, spontaneously moves all extremities. Facial muscles are symmetrical. Tongue is midline. IMPRESSION: 1. Acute kidney injury. Presumably secondary to sepsis syndrome with hypotension and tachycardia. Blood pressure is improving with IV fluids. Urine output is improving as well. She will undergo imaging of her kidneys and routine urinalysis and urine electrolytes, urine protein, etc. Continue resuscitation, and we will observe her response. 2. Hyperkalemia. Improving with medical therapy. Continue to monitor carefully. 3. Metabolic acidosis. cc: Asad Can MD
[2018-06-17] MEDS ORDERED: CORDARONE 540 MG in D5W 289.2 ML IV ONE (22:48)
[2018-06-18] MEDS: ZOSYN 2.25 GM in NS 50 ML IV SCH ×4 (00:29→23:52)
[2018-06-18] MEDS ORDERED: SODIUM BICARBONATE 8.4% 100 MEQ in D5W 1,000 ML IV SCH (02:30)
[2018-06-18 03:23] LABS: CK INDEX 1.7 (0.0-2.5); CK-MB 8.86 ng/mL (0.0-5.0)
[2018-06-18 04:51] LABS: ALLEN TEST YES; BE -2.7 mmoll (-3.0-3.0); BLOOD TYPE ARTERIAL; HCO3-(ACT) 22.8 mmoll (20.0-26.0); METHB 2.1 % (0.0-1.5); O2(CT) 11.5 mL/dL (15.0-23.0); O2HB 95.3 % (95.0-99.0); PCO2(98.6) 32 mmHg (35-45); PO2(98.6) 118 mmHg (60-100); SAMPLE BLOOD; SAO2 98.7 % (95.0-100.0); THB 8.4 g/dL (11.5-17.4); pH(98.6) 7.43 (7.35-7.45)
[2018-06-18 04:52] LABS: MODALITY ROOM AIR
[2018-06-18] MEDS: ZYVOX 600 MG/D5W 600 MG/300 ML IVPB IV SCH ×2 (06:00→17:03)
[2018-06-18] MEDS: HUMULIN R SUBQ SCH ×4 (06:02→20:26)
[2018-06-18 06:26] LABS: BASO# 0.04 X1000 (0.0-0.2); BASO% 0.4 % (0.0-0.8); EOS# 0.18 X1000 (0.0-0.7); EOS% 1.8 % (0.0-10.0); HEMOGLOBIN 7.8 g/dL (12.0-16.0); IMM GRAN# 0.47 X1000 (0.0-0.04); IMM GRAN% 4.7 % (0.0-0.5); LYMPH# 1.99 X1000 (1.2-3.4); LYMPH% 19.8 % (20.5-51.1); MCHC 31.2 g/dL (33-37); MCV 73.7 FL (81-99); MONO# 0.96 X1000 (0.11-0.59); MONO% 9.6 % (1.7-9.3); NEUT% 63.7 % (42.2-75.2); PLT 235 X1000 (130-400); RBC 3.39 XMIL (4.2-5.4); RDW 17.5 % (11.5-14.5); WBC 10.04 X1000 (4.8-10.8)
[2018-06-18 06:29] LABS: RETIC% 1.53 % (0.8-2.1); RETIC-HE 20.5 PG (28.2-36.6)
[2018-06-18 06:46] LABS: IRON SATURATION 18 %; TIBC 139 ug/dL; TOTAL IRON 25 ug/dL (49-151); UNBOUND IRON 114 ug/dL (112-346)
[2018-06-18 07:11] LABS: ALBUMIN 2.4 g/dL (3.5-5.0); CALCIUM 8.6 mg/dL (8.8-10.2); CREATININE 2.7 mg/dL (0.5-0.9); PHOSPHORUS 3.3 mg/dL (2.7-4.5)
[2018-06-18 07:15] LABS: HEMOGLOBIN A1C 5.8 % (4.8-6.0)
[2018-06-18 07:34] LABS: FERRITIN 2149 ng/mL (13-150)
[2018-06-18] MEDS: D5W 1,000 ML IV SCH ×2 (08:20→17:03)
[2018-06-18] MEDS: FOLIC ACID 1 MG in NS 50 ML IV SCH (08:20)
[2018-06-18 14:38] LABS: ALBUMIN 2.5 g/dL (3.5-5.0); CALCIUM 8.6 mg/dL (8.8-10.2); CREATININE 2.5 mg/dL (0.5-0.9); PHOSPHORUS 2.9 mg/dL (2.7-4.5); POTASSIUM 4.3 mmol/L (3.5-5.1)
--- NOTE | 2018-06-18 16:20 | NEPHROLOGY PROGRESS NOTE ---
DATE: 06/18/2018 SUBJECTIVE: She is alert and answers questions. Denies pain, nausea, etc., no shortness of breath. OBJECTIVE: Vital Signs: Blood pressure 98/55, heart rate 100, respirations 31, afebrile. Intake 1 L. Output 0.5 L. General: No acute distress. Chronically ill and frail. Skin: Warm and dry. Neck: Neck veins are not distended. Heart: Regular. No gallops. Lungs: Equal. No crackles. Abdomen: Soft, flat, nontender. Extremities: Have no edema, clubbing, or cyanosis. IMPRESSION: 1. Acute kidney injury. Creatinine is improving. Baseline creatinine from last month was 1.0. Continue current care without change. 2. Electrolytes: Hypernatremia is present. Acid-base is improved. Dr. English change her IV fluids to D5 water at 100 mL an hour. I believe this is appropriate, no changes are made. 3. History of abnormal CT. She had a CT performed in May which demonstrated multiple small lytic lesions in the spine and proximal femurs. That certainly will need to be investigated more thoroughly when she is over her acute illness. cc: Asad Can MD
--- NOTE | 2018-06-18 18:42 | PROGRESS NOTE ---
DATE: 06/18/2018 SUBJECTIVE: The patient is resting comfortably in bed. She states that she feels a little bit better today. She denies having any chest pain, shortness of breath, headache or dizziness. OBJECTIVE: Vital Signs: Temperature 98 degrees, blood pressure 109/59, heart rate 110, respirations 16, O2 saturations 100% on room air, intake 998, output 480. General: This is a chronically ill-appearing elderly female lying in bed in no acute distress. Head: Normocephalic, atraumatic. Heart: S1, S2 normal. Tachycardic. Lungs: Equal air entry bilaterally. No wheezing. No rales. No rhonchi. Abdomen: Positive bowel sounds. Soft, nontender, nondistended. Extremities: No edema, no cyanosis, no calf tenderness. Neuro: The patient is alert and oriented x3. LABS: White blood cell count 10, hemoglobin 7.8, hematocrit 25, platelets 235,000, sodium 142, potassium 4.3, chloride 112, CO2 21, BUN 93, creatinine 2.5, glucose 131, A1c 5.8. Troponin 0.18, albumin 2.5, folate 3.9. ASSESSMENT AND PLAN: 1. Sepsis secondary to a urinary tract infection. Continue with antibiotic therapy and IV fluid hydration. The urine culture is growing gram-negative rods. 2. Acute kidney injury. Improved. The patient's urine output has improved since yesterday. Continue with IV fluids. 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 3. Hyperkalemia. Resolved. 4. Metabolic acidosis. Improved. 5. Atrial fibrillation. The patient is on amiodarone. 6. Hypernatremia. The patient's intravenous fluids were changed to D5W, will monitor the sodium level closely. 7. Folate deficiency. Will start the patient on folic acid. 8. Gastrointestinal prophylaxis. Will start the patient on Protonix. 9. Lytic lesions on the spine. The patient is unable to stand for skeletal survey. Will order serum protein electrophoresis. The patient will likely need to be seen by an oncologist for further workup. 10. Deep vein thrombosis prophylaxis. Will start the patient on heparin. cc: Ewelina English MD MTDJaime
[2018-06-18] MEDS: HEPARIN SUBQ SCH (20:18)
[2018-06-18] MEDS ORDERED: CORDARONE PO SCH (21:00)
[2018-06-18] MEDS ORDERED: CORDARONE 360 MG/D5W 360 MG/200 ML IV.SOLN IV ONE (21:27)
[2018-06-18] MEDS ORDERED: NEO-SYNEPHRINE 50 MG in NS 250 ML IV SCH (21:30)
[2018-06-19] MEDS ORDERED: CORDARONE 540 MG in D5W 289.2 ML IV ONE (03:27)
[2018-06-19] MEDS: ZYVOX 600 MG/D5W 600 MG/300 ML IVPB IV SCH (06:07)
[2018-06-19] MEDS: D5W 1,000 ML IV SCH ×2 (06:07→15:19)
[2018-06-19] MEDS: HUMULIN R SUBQ SCH ×4 (06:08→19:59)
[2018-06-19 06:22] LABS: BASO# 0.01 X1000 (0.0-0.2); BASO% 0.1 % (0.0-0.8); EOS# 0.25 X1000 (0.0-0.7); EOS% 2.3 % (0.0-10.0); HEMATOCRIT 24.2 % (37.0-47.0); HEMOGLOBIN 7.6 g/dL (12.0-16.0); IMM GRAN# 0.41 X1000 (0.0-0.04); IMM GRAN% 3.8 % (0.0-0.5); LYMPH# 2.05 X1000 (1.2-3.4); LYMPH% 19.2 % (20.5-51.1); MCHC 31.4 g/dL (33-37); MCV 73.1 FL (81-99); MONO# 0.95 X1000 (0.11-0.59); MONO% 8.9 % (1.7-9.3); MPV 12.6 FL (7.4-10.4); NEUT# 7.01 X1000 (1.4-6.5); NEUT% 65.7 % (42.2-75.2); PLT 218 X1000 (130-400); RBC 3.31 XMIL (4.2-5.4); RDW 16.5 % (11.5-14.5); WBC 10.68 X1000 (4.8-10.8)
[2018-06-19 07:04] LABS: ALB/GLOB RATIO 0.7; ALBUMIN 2.2 g/dL (3.5-5.0); CALCIUM 8.1 mg/dL (8.8-10.2); CREATININE 2.3 mg/dL (0.5-0.9); PHOSPHORUS 2.8 mg/dL (2.7-4.5); POTASSIUM 4.4 mmol/L (3.5-5.1); TOTAL BILIRUBIN 0.15 mg/dL (0.20-1.00); TOTAL PROTEIN 5.4 g/dL (6.3-8.3)
[2018-06-19] MEDS: FOLIC ACID 1 MG in NS 50 ML IV SCH (07:08)
[2018-06-19] MEDS: HEPARIN SUBQ SCH ×2 (08:00→19:59)
[2018-06-19] MEDS: ZOSYN 2.25 GM in NS 50 ML IV SCH ×2 (08:33→16:48)
--- NOTE | 2018-06-19 08:40 | Diag Imaging Result Doc PS360 ---
EXAM: CT HEAD W/O CONTRAST HISTORY: unequal pupils, headache TECHNIQUE: CT head without contrast COMPARISON: None. FINDINGS: No parenchymal hemorrhage. No epidural or subdural hematoma. No subarachnoid hemorrhage. There is atrophy with chronic microvascular ischemic changes. No mass identified on this noncontrasted exam. No hydrocephalus. No sinus opacification. IMPRESSION: 1.No hemorrhage 2.Atrophy with chronic microvascular ischemic changes This exam was performed using automated exposure control, adjustment of mA or kV according to patient size, and/or use of iterative reconstruction technique. Electronically signed by Azam Christiansen 06/19/2018 8:37 AM
[2018-06-19] MEDS ORDERED: DITROPAN PO PRN (13:06)
--- NOTE | 2018-06-19 15:07 | PROGRESS NOTE ---
DATE: 06/19/2018 SUBJECTIVE: The patient is resting comfortably in bed. She complains of a slight headache but otherwise has no other complaints today. OBJECTIVE: Vital Signs: Temperature 98.4 degrees, blood pressure 106/54, heart rate 76, respirations 16, O2 saturation 98% on room air. Urine output 1.1 L. Intake 3.8 L. General: This is a chronically ill-appearing elderly female lying in bed in no acute distress. HEENT: Head normocephalic, atraumatic. Heart: S1, S2 normal. Irregularly irregular rhythm. Lungs: Equal air entry bilaterally. No wheezing. No rales. No rhonchi. Abdomen: Positive bowel sounds. Soft, nontender, nondistended. Extremities: Trace pedal edema. Neurologic: The patient is alert and oriented. LABORATORY DATA: White blood cell count 10, hemoglobin 7.6, hematocrit 24, platelets 218,000. Sodium 142, potassium 4.4, chloride 109, CO2 21, BUN 79, creatinine 2.3 glucose normal rate. Head CT shows atrophy with chronic microvascular ischemic changes. ASSESSMENT AND PLAN: 1. Sepsis secondary to Escherichia coli urinary tract infection. Continue on Zosyn. 2. Acute kidney injury. Slowly improving. Continue with intravenous fluids. 3. Atrial fibrillation. Continue on amiodarone. Management as per the mental health program manager. 4. Folate deficiency. Continue on folic acid. 5. Lytic lesions on the spine. Urine and serum electrophoresis are currently pending. The patient is unable to stand for a skeletal survey. 6. Severe protein calorie malnutrition. Will start the patient on Ensure with each meal. 7. Metabolic acidosis. Stable. 8. Deep vein thrombosis prophylaxis. Continue on heparin. cc: Ewelina English MD [facility]
--- NOTE | 2018-06-19 15:13 | ECHO REPORT ---
ORDER DATE: 06/18/2018 ECHOCARDIOGRAPHIC MEASUREMENTS: 1. Interventricular septum 0.7. 2. Left ventricular posterior wall 0.7. 3. Diastolic diameter 3.8. 4. Left atrium 3.5. 5. Aorta 3.1. SUMMARY: 1. Aortic valve leaflets were sclerosed. Technically suboptimal study. Poor acoustic window. 1. Pulmonic valve not well visualized. 2. Tricuspid valve was normal. 3. Mitral valve leaflets were normal however tachycardia was noted at a heart rate of 130. 4. Peak velocity across the aortic valve less than 2 m/sec. There is no aortic stenosis or regurgitation. 5. Atrial fibrillation was noted. 6. There is mild mitral regurgitation. 7. Normal left ventricular cavity size. 8. Estimated ejection fraction of 55-60%. Endocardium not well visualized in all views. 9. Mild tricuspid regurgitation. 10. Peak velocity across the tricuspid valve was 2.7 m/sec. 11. Pulmonary artery systolic pressure of 40 mmHg. at 12. There is no pericardial effusion or obvious intracardiac mass or thrombus. cc: Gabriel Cardozo MD
[2018-06-19] MEDS: CORDARONE 540 MG in D5W 289.2 ML IV SCH (17:07)
[2018-06-20] MEDS: ZOSYN 2.25 GM in NS 50 ML IV SCH ×4 (00:32→23:30)
[2018-06-20] MEDS: D5W 1,000 ML IV SCH (00:32)
[2018-06-20] MEDS: HUMULIN R SUBQ SCH ×4 (06:38→21:02)
[2018-06-20] MEDS: FOLIC ACID 1 MG in NS 50 ML IV SCH (07:13)
[2018-06-20 07:17] LABS: BASO# 0.02 X1000 (0.0-0.2); BASO% 0.2 % (0.0-0.8); EOS# 0.27 X1000 (0.0-0.7); EOS% 2.7 % (0.0-10.0); HEMATOCRIT 23.6 % (37.0-47.0); HEMOGLOBIN 7.7 g/dL (12.0-16.0); IMM GRAN# 0.48 X1000 (0.0-0.04); IMM GRAN% 4.7 % (0.0-0.5); LYMPH# 1.82 X1000 (1.2-3.4); LYMPH% 17.9 % (20.5-51.1); MCH 23.5 PG (27-31); MCHC 32.6 g/dL (33-37); MONO# 0.86 X1000 (0.11-0.59); MONO% 8.5 % (1.7-9.3); MPV 12.2 FL (7.4-10.4); NEUT# 6.69 X1000 (1.4-6.5); PLT 214 X1000 (130-400); RBC 3.28 XMIL (4.2-5.4); RDW 15.9 % (11.5-14.5); WBC 10.14 X1000 (4.8-10.8)
[2018-06-20 07:25] LABS: CALCIUM 7.9 mg/dL (8.8-10.2); CREATININE 1.7 mg/dL (0.5-0.9); PHOSPHORUS 3.2 mg/dL (2.7-4.5); POTASSIUM 3.8 mmol/L (3.5-5.1)
--- NOTE | 2018-06-20 07:33 | EKG Report ---
Test Performed on : 06/18/2018 06:35:54 AM Test Reason : elevated troponin Blood Pressure : / mmHG Vent. Rate : 086 BPM Atrial Rate : 394 BPM P-R Int : 000 ms QRS Dur : 090 ms QT Int : 310 ms P-R-T Axes : 000 044 077 degrees QTc Int : 370 ms Atrial fibrillation. Nonspecific T wave abnormality Abnormal ECG When compared with ECG of 17-JUN-2018 13:51, (Unconfirmed) Vent. rate has decreased BY 103 BPM Nonspecific T wave abnormality no longer evident in Inferior leads Confirmed by Kitty VENEGAS, Esau ([id number]) on 06/20/2018 9:00:22 AM
[2018-06-20] MEDS: NS 1,000 ML IV SCH ×2 (07:41→17:33)
[2018-06-20 07:56] LABS: BANDS 6 % (0-1); EOS 4 % (1-10); LYMPHS 12 % (21-51); MONO 16 % (1-9); SEGS 56 % (42-75)
[2018-06-20 07:57] LABS: ANISOCYTOSIS 1+; HYPOCHROM 1+; POIKILOCYTOSIS 1+
[2018-06-20] MEDS: CORDARONE PO SCH ×2 (08:41→20:50)
[2018-06-20] MEDS: HEPARIN SUBQ SCH ×2 (08:42→20:49)
--- NOTE | 2018-06-20 10:37 | EKG Report ---
Test Performed on : 06/20/2018 09:32:24 AM Test Reason : afib Blood Pressure : / mmHG Vent. Rate : 078 BPM Atrial Rate : 078 BPM P-R Int : 144 ms QRS Dur : 068 ms QT Int : 478 ms P-R-T Axes : -69 022 041 degrees QTc Int : 544 ms Unusual P axis, possible ectopic atrial rhythm. Nonspecific ST abnormality Prolonged QT Abnormal ECG When compared with ECG of 18-JUN-2018 06:35, Ectopic atrial rhythm. has replaced Atrial fibrillation. QRS duration has decreased Nonspecific T wave abnormality now evident in Inferior leads QT has lengthened Confirmed by Kitty VENEGAS, Esau ([id number]) on 06/20/2018 5:28:17 PM
[2018-06-20] MEDS ORDERED: CORDARONE 360 MG/D5W 360 MG/200 ML IV.SOLN IV SCH (11:30)
[2018-06-20] MEDS: CORDARONE 540 MG in D5W 289.2 ML IV SCH (11:35)
--- NOTE | 2018-06-20 12:32 | NEPHROLOGY PROGRESS NOTE ---
DATE: 06/20/2018 SUBJECTIVE: Patient is awake and alert. She is answering questions and following commands. OBJECTIVE: Vital Signs: Temperature 98.1 degrees, pulse 69, respiratory rate 15, blood pressure 123/63. Intake 3 L, output 1.1 L. Physical Examination: General: This is an elderly female, resting in bed. She is awake and alert. No acute distress. She does appear chronically ill. HEENT: Normocephalic, atraumatic. She has O2 supplementation via nasal cannula. Oral mucosa appears dry. Neck: Supple, without JVD. Cardiovascular: Reveals a regular rate and rhythm. There is no murmur appreciated. Pulmonary: She is clear bilaterally. She has no increased work of breathing, although does have decreased breath sounds to the bases. Abdomen: Soft, with positive bowel sounds. : Hemphill catheter with clear yellow urine. Extremities: No clubbing, cyanosis. She does have some trace dependent edema to the upper extremities. No pretibial edema noted. Integumentary: Skin is warm and dry otherwise. Lab Data: WBC of 10.1, hemoglobin 7.7. Sodium 129, potassium 3.8, CO2 19, chloride 100, BUN 59, creatinine 1.7 (2.3, 2.5). ASSESSMENT AND PLAN: 1. Acute kidney injury. She has improved to below 2 over the last 24 hours. Her urine output has picked up and she is making greater than a liter of urine. She does have some mild dependent edema to the upper extremities. She has no shortness of breath. We will sign off. rg 2. Electrolytes. She did have hypernatremia earlier in the weekend and had her fluids changed to D5. She has rapidly corrected and is back down to 129 today with a chloride of 100. I will change her fluids back to normal saline. \ Dictated by ALBERT More for Asad Can MD Face to face encounter, data reviewed, discussed with Tomi Gonzalez on 06/20/18. I agree with the above assessment and plan of care. rg cc: Asad Can MD [facility]
--- NOTE | 2018-06-20 13:12 | PROGRESS NOTE ---
DATE: 06/20/2018 SUBJECTIVE: The patient is resting comfortably in bed. She has no complaints at this time. OBJECTIVE: Vital Signs: Temperature 98.3 degrees, blood pressure 120/53, heart rate 76, respirations 20, O2 saturations 100% on room air, intake 3 L, output 1.1 L. General: This is a chronically ill-appearing elderly female lying in bed in no acute distress. Heart: S1, S2 normal. Regular rate and rhythm. Lungs: Equal air entry bilaterally. No wheezing. No rales. No rhonchi. Abdomen: Positive bowel sounds. Soft, nontender, nondistended. Extremities: The patient has 1+ edema in the lower extremities and 2+ edema in the left arm. Neurologic: The patient is alert and oriented. LABORATORY DATA: White blood cell count 10, hemoglobin 7.7, hematocrit 23, platelets 214,000. Sodium 129, potassium 3.8, chloride 100, CO2 19, BUN 59, creatinine 1.7, glucose 108, calcium 7.9. ASSESSMENT AND PLAN: 1. Sepsis. Improved. Continue to treat the underlying infection. 2. Urinary tract infection secondary to Escherichia coli. Continue on Zosyn. 3. Acute kidney injury. Slowly improving. Nephrology is following. 4. Hyponatremia. The patient's IV fluids have been changed to normal saline. We will monitor the sodium level closely. 5. Atrial fibrillation. Continue on amiodarone. Further management as per the customizer. 6. Folate deficiency. Continue on folic acid replacement. 7. Anemia. We will continue to monitor the hemoglobin and hematocrit closely. 8. Lytic lesions on the spine. The urine and serum electrophoresis are currently pending. 9. Severe protein calorie malnutrition. Continue with Ensure with each meal. 10. Metabolic acidosis. Stable. 11. Deep vein thrombosis prophylaxis. Continue on heparin. cc: Ewelina English MD MTDD
[2018-06-20] MEDS ORDERED: CORDARONE 540 MG in D5W 289.2 ML IV ONE (17:19)
[2018-06-21] MEDS: NS 1,000 ML IV SCH ×3 (02:59→23:29)
[2018-06-21] MEDS: HUMULIN R SUBQ SCH ×4 (06:06→21:40)
[2018-06-21 06:11] LABS: ALBUMIN 2.2 g/dL (3.5-5.0); CALCIUM 7.4 mg/dL (8.8-10.2); CREATININE 1.3 mg/dL (0.5-0.9); PHOSPHORUS 2.5 mg/dL (2.7-4.5); POTASSIUM 3.2 mmol/L (3.5-5.1)
[2018-06-21 06:35] LABS: HEMATOCRIT 24.1 % (37.0-47.0); HEMOGLOBIN 7.7 g/dL (12.0-16.0); MCH 23.5 PG (27-31); MCV 73.5 FL (81-99); MPV 11.1 FL (7.4-10.4); RBC 3.28 XMIL (4.2-5.4); RDW 15.9 % (11.5-14.5); WBC 8.81 X1000 (4.8-10.8)
[2018-06-21] MEDS: FOLIC ACID 1 MG in NS 50 ML IV SCH (07:24)
[2018-06-21] MEDS: ZOSYN 2.25 GM in NS 50 ML IV SCH ×3 (07:29→23:29)
[2018-06-21] MEDS: CORDARONE PO SCH (08:50)
[2018-06-21] MEDS: HEPARIN SUBQ SCH (08:50)
[2018-06-21] MEDS ORDERED: CORDARONE PO SCH (09:00)
[2018-06-21] MEDS ORDERED: KLOR-CON PO STA (14:37)
--- NOTE | 2018-06-21 15:23 | PROGRESS NOTE ---
DATE: 06/21/2018 SUBJECTIVE: Patient resting comfortably in bed. Has no complaints. OBJECTIVE: Vital Signs: Temperature is 99.2 degrees, pulse 77 respirations 20, blood pressure is 130/66, oxygen saturation is 98%. HEENT: Patient is atraumatic, normocephalic. Cardiovascular System: S1, S2. Respiratory system has evidence of good air entry bilaterally. Abdomen is soft, nontender. No masses felt. Extremities have trace edema in the lower extremities. Central nervous system: No obvious focal deficit noted. DIAGNOSTIC STUDIES: WBCs 8.81, hematocrit 24.1, platelet count 198,000. Sodium 137, potassium 3.2, chloride 108, bicarbonate 19, BUN 38, creatinine 1.3, calcium 7.4, phosphorus 2.5, albumin 2.2. Urine culture positive for E coli, 06/17/2018. ASSESSMENT AND PLAN: 1. Sepsis/septic shock. Maintain patient on IV fluids along with pressors. Primary focus of infection in this case is most likely a urinary tract infection caused by Escherichia coli. 2. Escherichia coli urinary tract infection. Continue antibiotics. 3. Acute kidney injury, improving. Continue intravenous fluids. 4. Hyponatremia, resolved. 5. Multiple electrolyte abnormalities, including hypokalemia, hypocalcemia, hypophosphatemia. We will replace potassium level and check magnesium level. Suspect patient may have low vitamin D levels, and as such, we will check 25-hydroxy vitamin D level. 6. Folate deficiency. Continue folic acid replacement. 7. Atrial fibrillation. Continue amiodarone. Cardiology is following. 8. Lytic lesions noted in spine. Follow up on workup being done for paraproteinemia. 9. Deep vein thrombosis prophylaxis. Heparin. 10. Gastrointestinal prophylaxis. PPI. cc: Patrice Peters MD [facility]
[2018-06-21] MEDS: CALMOSEPTINE OINTMENT TOP PRN (15:40)
[2018-06-22] MEDS: PROTONIX PO SCH (06:26)
[2018-06-22] MEDS ORDERED: D50W SYRINGE IV ONE (06:38)
[2018-06-22] MEDS ORDERED: D50W SYRINGE ONE (06:38)
[2018-06-22] MEDS: HUMULIN R SUBQ SCH ×3 (07:00→16:32)
[2018-06-22] MEDS: CORDARONE PO SCH (08:25)
[2018-06-22] MEDS: ZOSYN 2.25 GM in NS 50 ML IV SCH ×2 (08:25→16:04)
[2018-06-22] MEDS: NS 1,000 ML IV SCH ×3 (08:25→21:45)
[2018-06-22] MEDS: TYLENOL PO PRN (08:57)
[2018-06-22] MEDS ORDERED: CORDARONE PO SCH (09:00)
[2018-06-22] MEDS: FOLIC ACID 1 MG in NS 50 ML IV SCH (09:34)
[2018-06-22] MEDS ORDERED: VITAMIN D PO SCH (14:00)
--- NOTE | 2018-06-22 14:43 | PROGRESS NOTE ---
DATE: 06/22/2018 SUBJECTIVE: The patient resting in bed. Not in any obvious distress. OBJECTIVE: Vital signs: Temperature 98.6 degrees, pulse 78, respiratory rate 19, blood pressure 137/85, oxygen saturation is 96%. HEENT: Atraumatic, normocephalic. Cardiovascular System: S1, S2. Respiratory system has evidence of good air entry bilaterally. Abdomen is soft, nontender. No masses felt. Extremities: No evidence of edema. Central nervous system: No obvious focal deficits noted. LABORATORY DATA: ASSESSMENT: 1. Sepsis. Maintain patient on intravenous fluids and treat focus of infection, which in this case is urinary tract infection secondary to Escherichia coli. 2. Acute kidney injury. Continue to follow up on renal function. 3. Hyponatremia, resolved. 4. Vitamin D deficiency. Replace vitamin D level. 5. Folate deficiency. Replace folic acid level. 6. Atrial fibrillation. Continue current regimen. Cardiology is following. 7. Lytic lesions in the spine. Follow up on workup for paraproteinemia. 8. Deep vein thrombosis prophylaxis. Heparin. 9. Gastrointestinal prophylaxis. PPI. DISPOSITION: Patient can be transferred to a step-down unit. cc: Patrice Peters MD MTDD
[2018-06-22 18:33] LABS: URINE SOURCE CATH
[2018-06-22 18:41] LABS: BILIRUBIN URINE NEGATIVE (NEGATIVE); BLOOD URINE LARGE (NEGATIVE); COLOR ORANGE; GLUCOSE URINE NEGATIVE (NEGATIVE); KETONE URINE NEGATIVE (NEGATIVE); LEUKOCYTES URINE LARGE (NEGATIVE); NITRITE URINE NEGATIVE (NEGATIVE); PROTEIN URINE 30 mg/dL (NEGATIVE); TURBIDITY URINE HAZY (CLEAR); UROBILINOGEN URINE NORMAL (NORMAL)
[2018-06-22 18:52] LABS: UR EPITHELIAL CELLS <10 /HPF (<10); URINE BACTERIA NEGATIVE /HPF; URINE RBC TNTC /HPF (<10); URINE WBC TNTC /HPF (<10)
[2018-06-22 18:57] LABS: URINE CASTS NONE SEEN
[2018-06-23] MEDS: ZOSYN 2.25 GM in NS 50 ML IV SCH ×4 (00:03→23:30)
[2018-06-23] MEDS: HUMULIN R SUBQ SCH ×5 (01:04→23:07)
[2018-06-23] MEDS: PROTONIX PO SCH (07:04)
[2018-06-23] MEDS: NS 1,000 ML IV SCH (08:21)
[2018-06-23] MEDS: FOLIC ACID 1 MG in NS 50 ML IV SCH (08:22)
[2018-06-23] MEDS: CORDARONE PO SCH (08:23)
[2018-06-23 11:32] LABS: HEMATOCRIT 20.3 % (37.0-47.0); HEMOGLOBIN 6.4 g/dL (12.0-16.0); MCH 23.2 PG (27-31); MCHC 31.5 g/dL (33-37); MCV 73.6 FL (81-99); MPV 9.7 FL (7.4-10.4); RBC 2.76 XMIL (4.2-5.4); RDW 16.1 % (11.5-14.5); WBC 8.64 X1000 (4.8-10.8)
[2018-06-23 11:52] LABS: ESTIMATED GFR > 60
[2018-06-23 11:59] LABS: AGAP 7; BUN 13 mg/dL (8-22); CALCIUM 7.3 mg/dL (8.8-10.2); CHLORIDE 123 mmol/L (98-107); COSMO 295; CREATININE 0.7 mg/dL (0.5-0.9); GLUCOSE 107 mg/dL (70-104); POTASSIUM 3.3 mmol/L (3.5-5.1); SODIUM 148 mmol/L (136-145); TCO2 18 mmol/L (25-35)
[2018-06-23 12:48] LABS: MAGNESIUM 1.1 mg/dL (1.5-2.7)
[2018-06-23] MEDS ORDERED: POTASSIUM CHLORIDE 40 MEQ/SWI 40 MEQ/100 ML IVPB IV ONE (15:45)
[2018-06-23] MEDS ORDERED: MAGNESIUM SULFATE 2 GM/S.W.I. 2 GM/50 ML IVPB IV ONE (15:45)
--- NOTE | 2018-06-23 15:55 | PROGRESS NOTE ---
DATE: 06/23/2018 SUBJECTIVE: Patient is resting in bed. No new complaints today. OBJECTIVE: Vital signs: Temperature 99.9 degrees, pulse 78, respiratory rate 20, blood pressure 130/54, oxygen saturation 98%. HEENT: Atraumatic, normocephalic. Cardiovascular System: S1, S2. Respiratory system has evidence of good air entry bilaterally. Abdomen is soft, nontender. No masses felt. Extremities: No evidence of edema. Central nervous system: No obvious focal deficits noted. LABORATORIES: WBC is 8.6, hematocrit is 20.3, platelet count of 198,000. Sodium is 148, potassium 3.3, chloride is 123, bicarbonate is [*] BUN is 13, creatinine 0.7. ASSESSMENT AND PLAN: 1. Sepsis. Maintain patient on intravenous fluids. Treat focus of infection, which is a urinary tract infection secondary to Escherichia coli. 2. Acute kidney injury, now resolved. 3. Profound anemia. Check iron studies, B12, folate and also stool for occult blood. We will type, cross, and transfuse at least 1 unit of packed red blood cells. 4. Hyponatremia, resolved. The patient's sodium actually is slightly on the high side today. We will discontinue normal saline infusion. 5. Vitamin D deficiency. Continue vitamin D replacement. 6. Folic acid deficiency. Continue folic acid replacement. 7. Atrial fibrillation. Continue amiodarone as well as apixaban. 8. Lytic [*]lesions in the spine. 9. Multiple electrolyte abnormalities, including hypokalemia and also hypomagnesemia. Replace potassium as well as magnesium level. 10. Deep vein thrombosis prophylaxis. Heparin. 11. Gastrointestinal prophylaxis. PPI. cc: Patrice Peters MD
[2018-06-23 17:18] LABS: IRON SATURATION 38 %; TIBC 108 ug/dL; TOTAL IRON 41 ug/dL (49-151); UNBOUND IRON 67 ug/dL (112-346)
[2018-06-23] MEDS: 1/2 NS 1,000 ML IV SCH (17:18)
[2018-06-23] MEDS: CALMOSEPTINE OINTMENT TOP PRN (17:53)
[2018-06-23] MEDS ORDERED: NS 500 ML ONE (22:46)
[2018-06-23] MEDS: TYLENOL PO PRN (23:06)
[2018-06-23] MEDS: ELIQUIS PO SCH (23:06)
[2018-06-24] MEDS: HUMULIN R SUBQ SCH ×5 (06:18→23:04)
[2018-06-24] MEDS: PROTONIX PO SCH (06:55)
--- NOTE | 2018-06-24 06:58 | EKG Report ---
Test Performed on : 06/24/2018 06:35:07 AM Test Reason : afib Blood Pressure : / mmHG Vent. Rate : 076 BPM Atrial Rate : 076 BPM P-R Int : 134 ms QRS Dur : 070 ms QT Int : 378 ms P-R-T Axes : 063 000 -22 degrees QTc Int : 425 ms Sinus rhythm. with premature atrial complexes. Low voltage QRS Nonspecific T wave abnormality Abnormal ECG When compared with ECG of 20-JUN-2018 09:32, Sinus rhythm. has replaced Ectopic atrial rhythm. ST no longer elevated in Inferior leads ST no longer elevated in Lateral leads QT has shortened Confirmed by Kitty VENEGAS, Esau ([id number]) on 06/24/2018 10:15:24 AM
[2018-06-24 07:03] LABS: BASO# 0.03 X1000 (0.0-0.2); BASO% 0.4 % (0.0-0.8); EOS# 0.26 X1000 (0.0-0.7); EOS% 3.4 % (0.0-10.0); HEMATOCRIT 27.4 % (37.0-47.0); HEMOGLOBIN 8.9 g/dL (12.0-16.0); IMM GRAN# 0.35 X1000 (0.0-0.04); IMM GRAN% 4.5 % (0.0-0.5); LYMPH# 1.81 X1000 (1.2-3.4); LYMPH% 23.4 % (20.5-51.1); MCH 25.5 PG (27-31); MCHC 32.5 g/dL (33-37); MCV 78.5 FL (81-99); MONO# 0.81 X1000 (0.11-0.59); MONO% 10.5 % (1.7-9.3); MPV 10.2 FL (7.4-10.4); NEUT# 4.47 X1000 (1.4-6.5); NEUT% 57.8 % (42.2-75.2); PLT 187 X1000 (130-400); RBC 3.49 XMIL (4.2-5.4); RDW 19.9 % (11.5-14.5); WBC 7.73 X1000 (4.8-10.8)
[2018-06-24 07:28] LABS: AGAP 8; ALB/GLOB RATIO 0.9; ALBUMIN 2.4 g/dL (3.5-5.0); ALKALINE PHOSPHATASE 49 U/L (32-104); BUN 10 mg/dL (8-22); CALCIUM 7.2 mg/dL (8.8-10.2); CHLORIDE 121 mmol/L (98-107); COSMO 290; CREATININE 0.8 mg/dL (0.5-0.9); ESTIMATED GFR > 60; GLUCOSE 73 mg/dL (70-104); GOT 15 U/L (10-30); GPT 9 U/L (10-36); MAGNESIUM 1.5 mg/dL (1.5-2.7); PHOSPHORUS 1.3 mg/dL (2.7-4.5); SODIUM 147 mmol/L (136-145); TCO2 18 mmol/L (25-35); TOTAL BILIRUBIN 0.23 mg/dL (0.20-1.00); TOTAL PROTEIN 5.2 g/dL (6.3-8.3)
[2018-06-24] MEDS: FOLIC ACID 1 MG in NS 50 ML IV SCH (08:53)
[2018-06-24] MEDS: ELIQUIS PO SCH ×2 (08:53→23:03)
[2018-06-24] MEDS: CORDARONE PO SCH (08:53)
[2018-06-24] MEDS: ZOSYN 2.25 GM in NS 50 ML IV SCH ×2 (09:49→19:56)
--- NOTE | 2018-06-24 13:26 | Extremity Venous Study ---
PROCEDURE NAME: Venous U/S Left Arm - 06/20/2018 PROCEDURE: Left upper extremity venous duplex study. DATE OF STUDY: 06/20/2018. REFERRING PHYSICIAN: Dr. English. READING PHYSICIAN: Dr. Cintron. MARGIN CLERK: Chuy. INDICATION: Left arm swelling. FINDINGS: The deep and superficial veins of the left upper extremity were imaged throughout their course. The cephalic and basilic veins are noncompressible without flow and show thrombus from the antecubital fossa into the forearm. The other visualized veins were compressible, patent without thrombus. INTERPRETATION: No DVT of the left upper extremity. There is SVT of the cephalic and basilic veins as described above. SVT of the of the left cephalic vein from the antecubital fossa to the forearm, and the left basilic vein from the upper arm down through the forearm. cc: MD Ewelina Guadalupe MD
--- NOTE | 2018-06-24 14:24 | DISCHARGE SUMMARY ---
ADMISSION DATE: 06/17/2018 DISCHARGE DATE: PRINCIPAL DIAGNOSIS: Hyperkalemia which is now resolved. SECONDARY DIAGNOSES: 1. Acute kidney injury now resolved. 2. Septic shock. 3. Urinary tract infection secondary to Escherichia coli. 4. Atrial fibrillation with rapid ventricular rate. 5. Vitamin D deficiency. 6. Folic acid deficiency. 7. Lytic lesions noted on spine. 8. Hypokalemia. 9. Hypomagnesemia. 10. Anemia. 11. Metabolic acidosis 12. Hyponatremia. DISCHARGE MEDICATIONS: Include the followin. Calmoseptine ointment to be used as directed. 2. Amiodarone 200 mg twice a day. 3. Oxybutynin 5 mg p.o. 3 times a day. 4. Neutra-Phos 1 to be taken 4 times a day for 3 days. 5. Pantoprazole 40 mg p.o. daily. 6. Calcium carbonate 500 mg p.o. daily. 7. Vitamin D 73329 units every 7 days. 8. Apixaban 2.5 mg p.o. twice a day. 9. Nitrofurantoin 100 mg twice a day for 7 days. 10. Potassium chloride 20 mEq p.o. every other day. 11. Neurontin 40 mg p.o. daily, 12. Atorvastatin 40 mg p.o. twice a day. 13. Losartan 100 mg p.o. daily. 14. Icar C one twice a day. 15. MiraLAX 17 g daily as needed. 16. Megestrol acetate 10 mL daily. 17. Melatonin 25 mg p.o. at bedtime. 18. Exelon patch daily. 19. Sertraline 50 mg p.o. daily. 20. Simvastatin 40 mg p.o. once a day at bedtime. 21. Hydrocodone 5/325 every 6 hours as needed. 22. Sennosides 4 tabs orally a day. CONSULTATIONS DURING HOSPITAL STAY: 1. Dr. Asad Can Nephrology. 2. Gabriel Cardozo Cardiology. PROCEDURES DONE DURING HOSPITAL STAY: 1. Renal ultrasound 06/17/2018. 2. Head CT 06/19/2018. HOSPITAL COURSE: Ms. Gina Quijano is a 77-year-old female who lives in an extended care facility. She was admitted to the hospital because the patient was found to have raised potassium level which was as high as 7.3. She was also found to be in atrial fibrillation with rapid ventricular rate. Heart rate about 168, blood pressure was about 75/48. Elevated potassium level was managed conservatively. During the time of this discharge summary, potassium level had come down to as low as 4.0. The patient was seen by the Nephrology team with regards to the elevated potassium as well as acute kidney injury. The patient's renal function was impaired at time of presentation. At the time of this discharge summary, renal function BUN/creatinine is about 10/0.8. The patient was seen by the cardiology team because of atrial fibrillation with rapid ventricular rate. In addition, she was noted to have abnormal troponin which was thought to be secondary to ATN. The patient currently on amiodarone as well as apixaban for atrial fibrillation. With regards to the elevated troponin, no further recommendations were made by the Cardiology team. Urine culture came back positive for E. coli, and she had to be placed on antibiotics for that. She has been going back to rehab facility with oral Macrobid. Vitamin D levels were noted to be low, and she will [place] [address]85 units once a week. At this time, patient has done fairly well. She is fairly stable. DISCHARGE PHYSICAL EXAMINATION: Vital Signs: During my evaluation today, her vital signs were as follows: Temperature 98.9, degrees, pulse 72, respiratory 16, blood pressure 138/72, and O2 saturation is 98%. HEENT: Atraumatic, normocephalic. Cardiovascular: S1, S2. Respiratory: Evidence of good air entry bilaterally. Abdomen: Soft, nontender. No masses felt. Extremities: No evidence of edema. LABORATORY DATA: WBC 7.73, hematocrit 27.4 with a platelet count of 187,000. Sodium 147, potassium 4.0, chloride 121, bicarb is 18, BUN is 10, and creatinine 0.8. Calcium level is 7.2. Phosphorus level 1.3. PLAN: Discharge back to rehab facility today. She will need PT/OT evaluation. Diet will be healthy heart. Activity will be as tolerated. She is expected to take her discharge medications as noted above. The patient will need to follow up with Cardiology Dr. Cardozo, and also follow up with Nephrology Dr. Can. The patient will also need to follow up with her primary care physician. Of note, the patient was noted to have a lytic lesion on spine. [*] ordered. I do not have those results at this time. I will recommend she follows up with Dr. Can with regards to workup for [*]proteinemia. cc: Patrice Peters MD
--- NOTE | 2018-06-24 14:27 | DISCHARGE SUMMARY ---
ADMISSION DATE: 06/17/2018 DISCHARGE DATE: 06/24/2018 ADDENDUM: As noted in that summary, she was found to have lytic lesions in her spine. I will get her to follow up with Dr. Martin in the outpatient to work her up for myeloma. cc: Patrice Peters MD
[2018-06-24] MEDS: MACROBID PO SCH (15:21)
--- NOTE | 2018-06-24 18:46 | GENERAL SURGERY CONSULTATION ---
DATE: 06/24/2018 REQUESTING PHYSICIAN: Patrice Peters MD. REASON FOR CONSULTATION: Left leg blister. HISTORY OF PRESENT ILLNESS: A 77-year-old female initially admitted from her extended living facility for abnormal labs with elevated potassium. She had improved to the point where she was about to be discharged. They noticed when removing her LINDA hose that she had a wound to her leg, on the left leg. It looked like a blister. Given this, they aborted the transfer and asked me to weigh an opinion. The patient is not very communicative, so I am unable to get further history. PAST MEDICAL HISTORY: 1. COPD. 2. Hypertension. 3. Arthritis. 4. Recurrent UTIs. 5. Hyperlipidemia. 6. Diabetes mellitus. PAST SURGICAL HISTORY: None reported. SOCIAL HISTORY: Lives in extended care facility. ALLERGIES: Tramadol. HOME MEDICATIONS: In MAR, reviewed. FAMILY HISTORY: Difficult to obtain. REVIEW OF SYSTEMS: Difficult to obtain secondary to the patient's mental status. OBJECTIVE: Vital Signs: The patient is currently afebrile. Vital signs are stable. General: Chronically ill-appearing female, looks stated age. HEENT: Normocephalic, atraumatic. Pupils equal, round, reactive to light. Mucous membranes moist. Oropharynx benign. Neck: Supple. Trachea midline. Cardiovascular: Regular rate and rhythm. Lungs: Grossly clear. Abdomen: Soft, nontender, nondistended. Extremities: Blister noted to the calf on the left leg. Looks like there is likely serous fluid. Vascular: Lower extremities are perfused. Skin: Wound as noted above. LABORATORY DATE: White blood count is normal, hematocrit 27, platelet count 187,000. Remainder of labs reviewed. ASSESSMENT AND PLAN: A 77-year-old female with left leg pain and blister. Left leg pain and blister. At this time, looks like a simple blister to the wound. Given the fact she has had leg pain, we will get an ultrasound of the leg to rule out any possible deep venous thrombosis. At this point, will just monitor, do local wound care. I appreciate the consult. cc: Jaya Dunn MD
[2018-06-24] MEDS: TYLENOL PO PRN (18:55)
[2018-06-24] MEDS: 1/2 NS 1,000 ML IV SCH (19:57)
[2018-06-24] MEDS: NEUTRA-PHOS PO SCH ×2 (19:58→23:03)
[2018-06-25] MEDS: ZOSYN 2.25 GM in NS 50 ML IV SCH ×3 (00:34→08:51)
[2018-06-25] MEDS: MACROBID PO SCH ×2 (01:19→13:15)
[2018-06-25] MEDS: 1/2 NS 1,000 ML IV SCH ×2 (01:20→06:55)
[2018-06-25] MEDS: HUMULIN R SUBQ SCH ×2 (06:14→11:50)
--- NOTE | 2018-06-25 06:14 | GENERAL SURGERY PROGRESS NOTE ---
DATE: 06/25/2018 SUBJECTIVE: Discussed ultrasound with the natural resources technician, no obvious DVT. This blister looks to be very superficial. OBJECTIVE: Vital Signs: Patient is currently afebrile. Her vital signs are stable. General: No acute distress. Resting comfortably. HEENT: Normocephalic, atraumatic. Pupils equal, round, reactive to light. Mucous membranes moist. Oropharynx benign. Neck: Supple. Trachea midline. Cardiovascular: Regular rate and rhythm. Lungs: Grossly clear. Abdomen: Soft, nontender, nondistended. Extremities: Blister to the calf looks about the same, looks like there is likely serous fluid. Vascular: All extremities perfused. Skin: Wound as noted above. Neurologic: Patient resting. LABORATORY: None this morning as of yet. ASSESSMENT AND PLAN: A 77-year-old with left leg pain and blister. Left leg pain and blister. At this time, a preliminary discussion with pathology technologist does not seem to suggest there is a DVT. This looks like it is simple cystic blister. Per 1 of the family members at the bedside this morning, this happens lot to the patient. I think from a surgical point of view, nothing to do with this blister, just let it run its course. I think she can probably be sent to rehab here soon. cc: Jaya Dunn MD
[2018-06-25] MEDS: PROTONIX PO SCH (06:19)
[2018-06-25 08:20] VITALS: BP 149/61
[2018-06-25] MEDS: CORDARONE PO SCH (08:51)
[2018-06-25] MEDS: NEUTRA-PHOS PO SCH ×2 (08:51→13:15)
[2018-06-25] MEDS: ELIQUIS PO SCH (08:51)
[2018-06-25] MEDS ORDERED: TUMS PO SCH (09:00)
--- NOTE | 2018-06-25 18:59 | DISCHARGE SUMMARY ---
ADMISSION DATE: 06/17/2018 DISCHARGE DATE: 06/25/2018 ADDENDUM REPORT: Addendum to a discharge summary. Ms. Quijano was discharged yesterday by Dr. Peters. However, the discharge was withheld because of a blister that was found on the left lower extremity. This has been evaluated by surgery and recommendation is allow the blister to run its course and no surgical intervention at this time. I think Ms. Quijano is completely stable for discharge and we will get her to the halfway today. I have reviewed her vitals. Blood pressure this morning is 149/61, pulse is 91, respiration is 16, temperature 98.1. Physical exam is unchanged. Ms Quijano is stable for discharge. Please refer to the details of the discharge summary in the chart by Dr. Peters. cc: Don Phillips MD
--- NOTE | 2018-06-28 14:24 | PROVIDER DOCUMENTATION ---
This chart was entered by Monet Thomson Scribe, acting as scribe for Robbie Arguello MD. HPI-General Adult - General Source: patient, EMS Unable to obtain history due to:: altered - History of Present Illness -Gen Adult Nature of Presenting Problems: 77 yobf presents to the ed via ems with c/o abnormal labs. pt has potassium 7.3 and is new onset renal failure pt in need of dialysis. pt has BP 75/48 and responsive to pain. pt is in afib 168 on exam Location of Pain/Injury: reports: none Pain Radiation: reports: no radiation Quality of Pain: reports: none Severity: reports: moderate Onset/Duration: reports: unsure Timing: reports: still present Context/Activities at Onset: reports: light activity Modifying Factors: improves with: nothing Associated Symptoms: reports: weakness, other (abnormal labs). denies: back/neck pain, chest pain, fever/chills, shortness of breath Similar Symptoms Previously?: Yes Recently seen or treated by another doctor?: No <Robbie Arguello - Last Filed: 06/28/18 15:09> <Papito Wisdom - Last Filed: 06/28/18 18:29> - General Chief Complaint: General Adult Stated Complaint: ABNORMAL LABS Time Seen by Provider: 06/17/18 12:50 Allergies/Adverse Reactions: Patient Allergies Allergy/AdvReac Type Severity Reaction Status Date / Time tramadol Allergy Severe ITCHING Verified 12/07/16 14:18 Home Medications: Home Medication List Medication Instructions Recorded Confirmed Last Taken Type Potassium Chloride [Klor-Con] 20 meq PO EVERY OTHER DAY 12/04/14 06/17/18 07/31/15 History Gabapentin [Neurontin] 400 mg PO BID 06/11/15 06/17/18 07/31/15 History Losartan [Cozaar] 100 mg PO DAILY #30 tablet 06/13/15 06/17/18 07/31/15 Rx Iron Carbonyl/Ascorbic Acid 1 each PO BID #30 tablet 12/11/16 06/17/18 Unknown Rx [Icar-C] Polyethylene Glycol 3350 [Miralax] 17 gm PO DAILY powder, packet 12/14/16 06/17/18 Unknown Rx Hydrocodone/Acetaminophen [Adrian 1 ea PO Q6H PRN 06/17/18 06/17/18 Unknown History 5-325 Tablet] Megestrol Acetate 10 ml PO DAILY 06/17/18 06/17/18 Unknown History Melatonin/Pyridoxine [Melatonin 5 1 ea PO QHS 06/17/18 06/17/18 Unknown History mg Tablet] Rivastigmine [Exelon 13.3MG/24Hrs] 1 ea TD DAILY 06/17/18 06/17/18 Unknown History SIMVAstatin [Zocor] 40 mg PO QHS 06/17/18 06/17/18 Unknown History Sennosides 4 tab PO DAILY 06/17/18 06/17/18 Unknown History Sertraline HCl 50 mg PO DAILY 06/17/18 06/17/18 Unknown History Amiodarone [Cordarone] 200 mg PO DAILY tab 06/24/18 Unknown Rx Apixaban [Eliquis] 2.5 mg PO BID tab 06/24/18 Unknown Rx Calcium Carbonate Chew [Tums] 500 mg PO DAILY tab.chew 06/24/18 Unknown Rx Ergocalciferol (Vitamin D2) 50,000 unit PO Q7D cap 06/24/18 Unknown Rx [Vitamin D] Menthol/Zinc Oxide Ointment 1 gm TOP PRN PRN tube 06/24/18 Unknown Rx [Calmoseptine Ointment] Naph,Mb-Db/K pH,Mbdb [Neutra-Phos] 1 ea PO 4XDAY powd.pack 06/24/18 Unknown Rx Nitrofurantoin Hand/Macrocryst 100 mg PO Q12HR cap 06/24/18 Unknown Rx [Macrobid] Oxybutynin [Ditropan] 5 mg PO TID PRN PRN tab 06/24/18 Unknown Rx Pantoprazole [Protonix] 40 mg PO DAILY@0700 tab 06/24/18 Unknown Rx Review of Systems - Adult - REVIEW OF SYSTEMS - ADULT ROS:: limited per condition Constitutional: denies: chills, fever Eyes: reports: no symptoms reported Ears, Nose, Mouth & Throat: reports: no symptoms reported Cardiovascular: reports: irregular heart rate (in afib). denies: chest pain Respiratory: denies: cough, shortness of breath, wheezing Gastrointestinal: denies: diarrhea, nausea, vomiting Genitourinary: reports: no symptoms reported Musculoskeletal: reports: no symptoms reported Integumentary: reports: no symptoms reported Neurological: denies: dizziness/vertigo, headache/migraines Psychiatric: reports: no symptoms reported Endocrine: reports: no symptoms reported Hematologic/Lymphatic: reports: no symptoms reported Allergic/Immunologic: reports: no symptoms reported All Other Systems: Reviewed and Negative <Robbie Arguello - Last Filed: 06/28/18 15:09> Past History - Adult - PAST MEDICAL HISTORY-ADULT Review of Records: reports: Nursing Assessment Review, Medications Reviewed Major Childhood Illnesses: reports: denies history Cardiovascular: reports: HTN, hyperlipidemia Respiratory: reports: COPD Gastrointestinal: reports: GERD Obstetrical/Gynecological: reports: denies history Genitourinary: reports: denies history Musculoskeletal: reports: arthritis Neurological: reports: dementia Endocrine/Immune: reports: Diabetes Other Conditions: reports: denies history - PRIOR SURGERIES/PROCEDURES Surgical/Procedure History: reports: orthopedic (extremity) - IMMUNIZATION STATUS Childhood Immunizations: See Nurse Assessment Flu Vaccine: See Nurse Assessment - FAMILY HISTORY Family History: reviewed, not pertinent - SOCIAL HISTORY Smoking: non-smoker Substance Use: alcohol Alcohol Use Frequency: occasionally Living Situation: care facility <Robbie Arguello - Last Filed: 06/28/18 15:09> Physical Exam-General - PHYSICAL EXAM-ADULT Initial Vital Signs Reviewed: Yes (HR 108 BP 75/48 ) - CONSTITUTIONAL General Appearance: slow to respond - EYES Eyes: PERRL/EOMI, pale conjunctivae - HEAD, EARS, NOSE, MOUTH & THROAT HENMT: negative: moist mucous membranes (dry), dental decay (no teeth) - NECK Neck: non-tender, normal inspection - RESPIRATORY Respiratory: lungs clear, normal breath sounds - CARDIOVASCULAR Cardiovascular: irregularly irregular (afib) - GASTROINTESTINAL (ABDOMEN) Abdominal Exam: soft, tenderness (generalized with palpation pt grimaces) - LYMPHATIC Lymphatic: no adenopathy - MUSCULOSKELETAL Extremity: other (skin is dry). negative: normal range of motion (pt BLE are contracted), normal gait - SKIN Integumentary: normal color, normal turgor, warm/dry - PSYCHIATRIC Psych/Mental Status: other (pt not speaking on exam and moans with pain) <Robbie Arguello - Last Filed: 06/28/18 15:09> Progress - PLAN OF CARE/RESULTS Progress/Plan/Lab Results: Orders Category Date Time Status 0.9% Sodium Chloride Inj [Ns] 1,000 ml Med 06/17/18 12:46 Discontinued .ROUTE As directed Result Diagrams: 06/24/18 06:27 06/24/18 06:27 - REASSESSMENT Reassessment #1 Time Reassessed: 13:37 ( at bedside, pt is resting in bed) Status: unchanged Reassessment #2 Time Reassessed: 13:55 (dr arguello at bedside pt still in afib ) Status: unchanged - EKG 1 Time of EKG reading by physician:: 12:37 EKG Read and Signed by:: Robbie Arguello EKG Interpretation (*Must complete 3 of following elements*): Abnormal Rate: 146 Rhythm: afib with rvr Kennedy: normal QRS: other (low voltage qrs) MN Interval: normal ST Wave: elevated (st elevation, consider inferolateral injury or acute infarct) Comments: per dr arguello no acute mi 2 Time of EKG reading by physician:: 13:51 EKG Read and Signed by:: Robbie Arguello EKG Interpretation (*Must complete 3 of following elements*): Abnormal Rate: 189 Rhythm: afib with rvr Kennedy: normal QRS: other (low qrs) MN Interval: normal ST Wave: normal Prior EKG Comparison: changes noted Comments: nonspecific T wave abnormality - XRAY 1 XRAY: Bilateral XRAY Study: Chest Impression: See EMR Report (EXAM: CHEST-1 VIEW 06/17/2018 HISTORY: new a fib TECHNIQUE: AP portable at 1316 COMMENT: The appearance the chest has not changed significantly since 12/07/2016. IMPRESSION: No acute disease. Electronically signed by David Everett 06/17/2018 1:21 PM 06/17/18 1321 Interpreting Physician: David Everett MD Dictated Date/Time: 06/17/18 1321 cc: Robbie Arguello MD; Clarence Henson MD) - CONSULTS/PCP/HOSPITALIST Notification #1 *Consult/PCP/Hospitalist*: hospitalist Time Discussed: 14:37 (spoke with carline ) Reason/Comments: to icu Consult Disposition: Admit <Robbie Arguello - Last Filed: 06/28/18 15:09> - PLAN OF CARE/RESULTS Progress/Plan/Lab Results: Vital Signs - 8 hr 06/17/18 12:32 06/17/18 12:37 06/17/18 12:39 Temperature 96.6 F L Pulse Rate 108 H Respiratory Rate 18 Blood Pressure 75/48 65/51 O2 Sat by Pulse Oximetry 99 99 98 06/17/18 12:40 06/17/18 12:44 06/17/18 12:50 Temperature Pulse Rate 96 H 128 H Respiratory Rate Blood Pressure 75/48 O2 Sat by Pulse Oximetry 98 97 06/17/18 12:56 06/17/18 13:00 06/17/18 13:01 Temperature Pulse Rate 118 H 130 H 107 H Respiratory Rate 18 Blood Pressure 75/48 66/34 O2 Sat by Pulse Oximetry 97 97 98 06/17/18 13:10 06/17/18 13:20 06/17/18 13:28 Temperature Pulse Rate 167 H 101 H 152 H Respiratory Rate 26 H Blood Pressure 76/41 O2 Sat by Pulse Oximetry 78 L 90 L 89 L 06/17/18 13:30 06/17/18 13:40 06/17/18 13:50 Temperature Pulse Rate 143 H 186 H 193 H Respiratory Rate 30 H 18 26 H Blood Pressure 87/52 O2 Sat by Pulse Oximetry 99 77 L 06/17/18 13:54 06/17/18 14:00 06/17/18 14:01 Temperature Pulse Rate 173 H 109 H 120 H Respiratory Rate 17 26 H 19 Blood Pressure 100/79 68/36 O2 Sat by Pulse Oximetry 87 L 88 L 83 L 06/17/18 14:03 06/17/18 14:05 06/17/18 14:06 Temperature Pulse Rate 120 H 107 H 114 H Respiratory Rate 37 H 31 H 21 Blood Pressure 83/51 80/47 78/45 O2 Sat by Pulse Oximetry 80 L 06/17/18 14:10 06/17/18 14:15 06/17/18 14:16 Temperature Pulse Rate 105 H 128 H 110 H Respiratory Rate 22 14 24 Blood Pressure 97/49 103/54 O2 Sat by Pulse Oximetry 84 L 99 06/17/18 14:20 06/17/18 14:30 06/17/18 14:40 Temperature Pulse Rate 105 H 122 H 124 H Respiratory Rate 26 H 13 29 H Blood Pressure 108/51 93/53 O2 Sat by Pulse Oximetry 98 97 86 L 06/17/18 14:41 06/17/18 14:50 06/17/18 15:00 Temperature Pulse Rate 115 H 124 H 108 H Respiratory Rate 21 26 H 20 Blood Pressure 112/70 94/51 O2 Sat by Pulse Oximetry 06/17/18 15:01 06/17/18 15:10 06/17/18 15:11 Temperature Pulse Rate 131 H 101 H 101 H Respiratory Rate 18 22 27 H Blood Pressure 73/60 108/52 O2 Sat by Pulse Oximetry 78 L 06/17/18 15:20 Temperature Pulse Rate 111 H Respiratory Rate 26 H Blood Pressure 94/52 O2 Sat by Pulse Oximetry Laboratory Results - last 24 hr 06/17/18 06/17/18 06/17/18 12:25 12:25 12:25 WBC 10.71 RBC 4.24 Hgb 9.7 L Hct 30.7 L MCV 72.4 L MCH 22.9 L MCHC 31.6 L RDW Std Deviation 17.9 H Plt Count 327 MPV 12.5 H Immature Gran % (Auto) 4.5 H Neut % (Auto) 59.3 Lymph % (Auto) 21.0 Hand % (Auto) 12.9 H Eos % (Auto) 1.9 Baso % (Auto) 0.4 Immature Gran # (Auto) 0.48 H Neut # (Auto) 6.36 Lymph # (Auto) 2.25 Hand # (Auto) 1.38 H Eos # (Auto) 0.20 Baso # (Auto) 0.04 Segmented Neutrophils 54 Band Neutrophils 3 H Lymphocytes 22 Monocytes 12 H Eosinophils 5 Metamyelocytes 4.0 Microcytosis 1+ Specimen Type Sample Site pH pCO2 pO2 HCO3 Base Excess Oxyhemoglobin ABG O2 Sat (Calculated) ABG O2 Saturation ABG Carboxyhemoglobin ABG Methemoglobin Marky Test A-a O2 Difference Total Hemoglobin Lactate Blood Gas Modality FiO2 % Sodium 142 Potassium 6.9 H* Chloride 114 H Carbon Dioxide 12 L Anion Gap 16 BUN 130 H Creatinine 4.2 H Estimated GFR/1.73 m2 12 BUN/Creatinine Ratio 31 Glucose 93 Calculated Osmolality 324 Calcium 9.3 Phosphorus Total Bilirubin 0.18 L AST 16 ALT 6 L Alkaline Phosphatase 53 Creatine Kinase 693 H Creatine Kinase Index 1.3 CK-MB (CK-2) 8.85 H Troponin T 0.321 H* Total Protein 6.6 Albumin 3.1 L Globulin 3.5 Albumin/Globulin Ratio 0.9 Acetone Level 06/17/18 06/17/18 06/17/18 12:25 12:25 15:09 WBC RBC Hgb Hct MCV MCH MCHC RDW Std Deviation Plt Count MPV Immature Gran % (Auto) Neut % (Auto) Lymph % (Auto) Hand % (Auto) Eos % (Auto) Baso % (Auto) Immature Gran # (Auto) Neut # (Auto) Lymph # (Auto) Hand # (Auto) Eos # (Auto) Baso # (Auto) Segmented Neutrophils Band Neutrophils Lymphocytes Monocytes Eosinophils Metamyelocytes Microcytosis Specimen Type ARTERIAL Sample Site R RADIAL pH 7.22 L pCO2 26 L pO2 94 HCO3 12.7 L Base Excess -15.6 L Oxyhemoglobin 95.0 ABG O2 Sat (Calculated) 12.0 L ABG O2 Saturation 97.8 ABG Carboxyhemoglobin 1.30 ABG Methemoglobin 1.6 H Marky Test YES A-a O2 Difference 23.0 Total Hemoglobin 8.9 L Lactate 3.90 H Blood Gas Modality ROOM AIR FiO2 % 21.0 Sodium 144 Potassium 7.0 H* Chloride 115 H Carbon Dioxide 11 L Anion Gap 18 BUN 132 H Creatinine 4.1 H Estimated GFR/1.73 m2 13 BUN/Creatinine Ratio 32 Glucose 89 Calculated Osmolality 329 Calcium 9.6 Phosphorus 4.5 Total Bilirubin AST ALT Alkaline Phosphatase Creatine Kinase Creatine Kinase Index CK-MB (CK-2) Troponin T Total Protein Albumin 3.1 L Globulin Albumin/Globulin Ratio Acetone Level NEGATIVE Orders Category Date Time Status Admit Patient To Inpatient Status Routine AdmDCTranf 06/17/18 15:02 Active Cardiac Monitoring DIRECTED Care 06/17/18 12:54 Active Daily Weights 0500 Care 06/17/18 14:59 Active Hemphill Cath Insertion ORDERED Care 06/17/18 14:53 Active Intake and Output As Ordered Q 8-HR ASSESS Care 06/17/18 14:56 Active Nursing- MD Consult Request ROUTINE Care 06/17/18 15:00 Active Nursing- MD Consult Request ROUTINE Care 06/17/18 15:32 Active Nursing- Obtain EKG ONCE Care 06/17/18 12:54 Active Vital Signs Order Q1H Care 06/17/18 14:55 Active Z-Document. for Tele Applied ORDERED Care 06/17/18 14:55 Active MD [Physician/Provider Consults] Routine Cons 06/17/18 15:00 Ordered MD [Physician/Provider Consults] Routine Cons 06/17/18 15:32 Ordered CHEST-1 VIEW [RAD] Stat Exams 06/17/18 12:54 Completed US RENAL 2 (RETROPER) COMPLETE [US] Routine Exams 06/17/18 14:55 Completed ABG [RESP] Routine Lab 06/17/18 15:09 Completed CBC WITH DIFF [HEME] DAILY Lab 06/18/18 06:00 Ordered CBC WITH DIFF [HEME] DAILY Lab 06/19/18 06:00 Ordered CBC WITH DIFF [HEME] DAILY Lab 06/20/18 06:00 Ordered CBC WITH DIFF [HEME] Stat Lab 06/17/18 12:25 Completed CK PROFILE [SP CHEM] Stat Lab 06/17/18 12:25 Completed COMPREHENSIVE METABOLIC PANEL [CHEM] Stat Lab 06/17/18 12:25 Completed Cardiac Profile [CK PROFILE] [SP CHEM] Q8H Lab 06/17/18 18:00 Ordered Cardiac Profile [CK PROFILE] [SP CHEM] Q8H Lab 06/18/18 02:00 Ordered EOS URINE SMEAR [HEME] Stat Lab 06/17/18 16:46 Completed RENAL PROFILE [CHEM] Lab 06/18/18 06:00 Uncollected RENAL PROFILE [CHEM] Lab 06/19/18 06:00 Uncollected RENAL PROFILE [CHEM] Lab 06/20/18 06:00 Uncollected TROPONIN T Lab 06/17/18 18:04 Ordered TROPONIN T Lab 06/18/18 02:00 Uncollected TROPONIN T Stat Lab 06/17/18 12:25 Completed UR CREAT RANDOM [URCHEM] Routine Lab 06/17/18 16:46 Received UR OSMOLALITY [CHEM] Routine Lab 06/17/18 16:46 Received UR PROT RANDOM [URCHEM] Routine Lab 06/17/18 16:46 Received UR SODIUM [URCHEM] Routine Lab 06/17/18 16:46 Received URINALYSIS W/POSS RFLX CULT [URINALYSIS] Stat Lab 06/17/18 16:46 Completed 0.9% Sodium Chloride Inj [Ns] 1,000 ml Med 06/17/18 12:46 Discontinued .ROUTE As directed 0.9% Sodium Chloride Inj [Ns] 1,000 ml Med 06/17/18 12:49 Discontinued IV 999 mls/hr Albuterol 0.5% INH Conc [Albuterol 0.5% INH Conc For Med 06/17/18 12:52 Discontinued Hyperkalemia] 25 mg INH NOW ONE Albuterol 0.5% INH Conc [Albuterol 0.5% INH Conc For Med 06/17/18 17:00 Discontinued Hyperkalemia] 25 mg INH ONCE ONE Amiodarone [Cordarone] Med 06/17/18 13:52 Discontinued 150 mg IV NOW ONE Calcium Chloride Syringe Med 06/17/18 12:49 Discontinued 1 gm IV NOW ONE Dextrose 5%-Water Inj [D5w] 1,000 ml Med 06/17/18 14:54 Active Sodium Bicarbonate 8.4% 150 meq IV 100 mls/hr Dextrose 50% Syringe [D50w Syringe] Med 06/17/18 12:49 Discontinued 50 ml IV NOW ONE Dextrose 50% Syringe [D50w Syringe] Med 06/17/18 17:00 Discontinued 50 ml IV ONCE ONE Digoxin [Lanoxin] Med 06/17/18 13:53 Discontinued 500 microgm IV NOW ONE Enoxaparin 1 mg/kg [Lovenox 1 mg/kg] Med 06/17/18 13:42 Discontinued 1 each SUBQ NOW ONE Enoxaparin [Lovenox] Med 06/17/18 13:45 Discontinued 60 mg SUBQ NOW ONE Insulin Human Regular [Humulin R] Med 06/17/18 12:49 Discontinued 10 unit IV NOW ONE Insulin Human Regular [Humulin R] Med 06/17/18 17:00 Discontinued 10 unit IV ONCE ONE Sodium Bicarbonate 8.4% Med 06/17/18 12:49 Discontinued 50 meq IV NOW ONE Aerosol Treatments Routine Ot 06/17/18 12:53 Completed Aerosol Treatments Routine Ot 06/17/18 14:52 Completed Aerosol Treatments Stat Ot 06/17/18 12:53 Completed Aerosol Treatments Stat Ot 06/17/18 14:52 Completed Oxygen Device Routine Ot 06/17/18 15:00 Active Pulse Oximetry Routine Ot 06/17/18 15:01 Active Telemetry [OM.EQ] Routine Oth 06/17/18 14:55 Active EKG [EKG] Stat Ther 06/17/18 12:54 Draft EKG [EKG] Stat Ther 06/17/18 13:43 Draft EKG [EKG] Stat Ther 06/17/18 14:50 Ordered Transfer/Admit Order [TRANSFER] Routine Transfer 06/17/18 15:01 Ordered I, Dr. Wisdom performed the procedure on this patient. There was no change of shift note. Result Diagrams: 06/24/18 06:27 06/24/18 06:27 <Papito Wisdom - Last Filed: 06/28/18 18:29> Procedures - CENTRAL LINE Consent Form Signed?: No Time-Out Verification Completed?: Yes Central Line Lumen: triple Central Line Procedure Prep: Hand Hygeine Performed, Kit Utilized, Chloraprep, Betadine, Sterile Body Drape Placed, Antibiotic-coated Catheter Used Patient Position (To prevent Air Embolism): Trendelenburg (SC/IJ) Central Line Position: internal jugular (L) Ultrasound Guided?: Yes Hat, mask, sterile gown, & sterile gloves worn by physician?: Yes Site scrubbed vigorously for 30 seconds? (Groin: 2 min): Yes Anesthetic: 1% Post Procedure: Sutured in place, Sterile field maintained, BioPatch placed, Sterile dressing applied, Blood aspirated from each lumen, Placement verfied by XRAY Procedure Comment: performed by Dr Wisdom <Papito Wisdom - Last Filed: 06/28/18 18:29> Departure - Departure Date of Disposition Decision: 06/17/18 Time of Disposition Decision: 13:00 Certified Medical Emergency: Emergent - Critical Care Note This patient required my direct & personal management of CC.: Yes Total Time (mins): 48 Critical Care Statement: This patient required my direct personal management to treat or rule out processes, the absence of which, could potentiallly result in sudden, clinically significant life or limb threatening deterioration. <Robbie Arguello - Last Filed: 06/28/18 15:09> <Papito Wisdom - Last Filed: 06/28/18 18:29> - Departure DIAGNOSIS: Acute kidney injury, New onset atrial fibrillation, Septic shock Urinary tract infection Qualifiers: Urinary tract infection type: site unspecified Hematuria presence: with hematuria Qualified Code(s): N39.0 - Urinary tract infection, site not specified Disposition: ADMITTED INPATIENT 09 Condition: Critical Attestation - Physician/ EDA Attestation Patient care was provided by Advanced Practice Provider:: No The physician spent face to face time with patient:: Yes Advanced Practice Provider documentation review:: Supervising physician onsite and consulted in the evaluation and care of this patient. The physician did have a face to face encounter with the patient. <Robbie Arguello. - Last Filed: 06/28/18 15:09> This chart was documented by the indicated scribe, (Monet Thomson Scribe) and accurately reflects the services I performed and decisions made by me, Robbie Arguello MD, as attested by the provider's signature.
--- NOTE | 2018-06-28 14:34 | Extremity Venous Study ---
PROCEDURE NAME: Venous U/S Left Leg - 06/24/2018 REQUESTING PHYSICIAN: Dr. Dunn. MANAGER DATA WAREHOUSING: Chuy. INDICATIONS: 1. Pain in the left leg. 2. Large blister. EQUIPMENT: LLLerid E9 ultrasound system with a 9 L-D transducer. FINDINGS: Images of the left lower extremity venous system with comparison shot to the right common femoral vein were obtained in both sagittal and transverse planes. Doppler was used to evaluate veins for spontaneity, phasicity, respiratory excursion, and digital augmentation. RESULTS: No obvious superficial or deep venous thrombosis. The peroneal vein is not seen. There appears to be a cystic fluid collection noted in the level of the blister, but the veins seem compressible. INTERPRETATION: Compressible veins which did not show signs of superficial or deep venous thrombosis to the extremity. Again, there is no peroneal vein seen on this study. cc: Jaya Dunn MD
== END 2018-06-25 14:13 | DRG 871 ==
LOC: SUPCPDRO → ED 12:28 → SUATTDRO 15:27 → EDIPHOLD 15:27 → ICU 21:32 → 4N 06-22 17:45
PROVIDERS: ATTEND Internal Medicine
CPT/HCPCS: 36430; 51702; 70450; 71010; 71045; 76770; 80048; 80053; 80069; 81001; 81050; 82009; 82270; 82306; 82550; 82553; 82570; 82607; 82728; 82746; 82784; 82805; 82948; 83036; 83540; 83550; 83735; 83935; 84100; 84155; 84156; 84165; 84166; 84300; 84484; 85025; 85027; 85045; 86334; 86850; 86900; 86901; 86920; 87040; 87077; 87088; 87186; 87205; 93005; 93010; 93306; 93971; 94640; 94761; 96361; 96365; 96366; 96368; 96372; 96375; 96376; 97162; 97530; 99285; 99291; A9270; J0282; J0610; J1160; J1265; J1644; J1650; J2020; J2543; J3475; J3480; J7030; J7040; J7060; J7070; P9016; XXXXX